=== PATIENT | female | born 1965 | race Caucasian/White ===

== ENCOUNTER 2016-12-24 16:07 | Inpatient (IN) | payer BC ==
[~2016-12-24] VITALS: Ht 165.1 cm; Wt 79.0 kg
[~2016-12-24 16:07] MED LIST: HYDR-2762 PO; MULT-208 PO; PREG300C PO; tylenol pm
[2016-12-24] MEDS ORDERED: IOHEXOL 350 MG/ML 100 ML VIAL. IV ONE (16:45)
[2016-12-24 16:54] LABS: BASO # 0.1 x10^3/uL (0.0-0.2); BASO % 1 % (0-3); EOS % 1 % (0-3); HEMATOCRIT 41.1 % (36.0-47.0); HEMOGLOBIN 14.2 g/dL (12.0-15.5); LYMPH # 1.7 x10^3/uL (1.0-4.8); LYMPH % 12 % (24-48); MEAN CORPUSCULAR HEMOGLOBIN 32 pg (25-35); MEAN CORPUSCULAR HGB CONC 35 g/dL (31-37); MEAN CORPUSCULAR VOLUME 92 fL (79-100); MONO % 7 % (0-9); NEUT % 80 % (31-73); PLATELET COUNT 223 x10^3/uL (140-400); RED BLOOD COUNT 4.45 x10^6/uL (3.50-5.40); RED CELL DISTRIBUTION WIDTH 13.2 % (11.5-14.5); WHITE BLOOD COUNT 13.9 x10^3/uL (4.0-11.0)
[2016-12-24] MEDS ORDERED: MORPHINE SULFATE 4 MG/ML DISP.SYRIN. IV ONE (17:00)
[2016-12-24] MEDS ORDERED: CONTRAST GIVEN MC PRN (17:00)
--- NOTE | 2016-12-24 17:29 | EKG ---
[facility] [address] [place] [address] Test Date: 2016-12-24 Test Time: 16:37:25 Pat Name: BART GAUTHIER Department: Room: Gender: Female Pear Picker: : [id number] Requested By: DOC NORRIS Order Number: [id number] Reading MD: Austin Sawyer Measurements Intervals [place] Rate: 82 P: 0 [place]: 146 QRS: 48 QRSD: 92 T: 52 QT: 368 QTc: 433 Interpretive Statements SINUS RHYTHM Electronically Signed On 12-31-2016 8:59:07 CDT by Austin Sawyer
[2016-12-24 17:32] LABS: CALCIUM 9.2 mg/dL (8.5-10.1); CREATININE 0.6 mg/dL (0.6-1.0); POTASSIUM 4.1 mmol/L (3.5-5.1)
[2016-12-24 17:37] LABS: ALBUMIN 3.6 g/dL (3.4-5.0); ALBUMIN/GLOBULIN RATIO 0.9 (1.0-1.7); TOTAL BILIRUBIN 0.4 mg/dL (0.2-1.0); TOTAL PROTEIN 7.7 g/dL (6.4-8.2)
[2016-12-24] MEDS ORDERED: IOHEXOL 300 MG/ML 75 ML VIAL IV ONE (17:45)
--- NOTE | 2016-12-24 18:29 | RAD ---
PROCEDURE CT abdomen and pelvis with contrast HISTORY Abdominal pain, nausea and diarrhea TECHNIQUE Exposure: One or more of the following individualized dose reduction techniques were utilized for this exam: 1. Automated exposure control. 2. Adjustment of the mA and/or kV according to patient size. 3. Use of iterative reconstruction technique. Helical CT imaging abdomen and pelvis with 75 milliliters Omnipaque 300 intravenous contrast COMPARISON No prior FINDINGS Abdomen: Nodules at the right middle and bilateral lower lobes largest at the right lower lobe measuring 4 millimeters. Disc height loss and disc bulges with osteophytes with spinal canal and neural foraminal stenoses at L3-L4, L4-5 and L5-S1. 3 millimeter right renal calculus at the midpole. 1.5 centimeter nonspecific right adrenal nodule. Pancreatic duct approximate diameter 3 millimeters upper limits of normal. No biliary ductal dilation evident. There may be bilateral renal peripelvic cysts at the upper poles. Left adrenal, gallbladder, liver and spleen are unremarkable. Sigmoid colon diverticulitis with wall thickening and inflammation surrounding a diverticulum no abscess or pneumoperitoneum evident. No bowel obstruction. Appendix is negative. No abdominal fluid or adenopathy. Pelvis: Minimal pelvic fluid and fat stranding from diverticulitis of the sigmoid colon. Globular uterus likely due to fibroids largest at the left lower uterine segment measuring approximately 4 centimeters. Ovaries atrophic or hidden by surrounding bowel loops. Bladder, rectum and bones are unremarkable. IMPRESSION 1. Sigmoid colon diverticulitis. No abscess. 2. The appendix is negative. 3. 3 millimeter right renal midpole nonobstructing calculus. 4. Small pulmonary nodules at the lung bases largest measuring 4 millimeters. In a low risk patient no further follow-up is needed. In a high risk patient follow-up CT imaging in 12 months would be advised per Fleischner Society 2017 guidelines. 5. Fibroid uterus. 6. 1.5 centimeter nonspecific right adrenal nodule. Electronically signed by: Jack Gan MD (December 24, 2016 18:28:08)
[2016-12-24 18:42] LABS: BILIRUBIN,URINE NEGATIVE (NEG); GLUCOSE,URINE NEGATIVE (NEG); NITRITE,URINE NEGATIVE (NEG); PROTEIN,URINE NEGATIVE (NEG-TRACE); UROBILINOGEN,URINE 0.2 mg/dL (0.2 mg/dL)
[2016-12-24 18:49] LABS: BACTERIA,URINE 0 /HPF (0-FEW); RBC,URINE 0 /HPF (0-2); SQUAMOUS EPITHELIAL CELL,UR FEW /LPF; WBC,URINE 0 /HPF (0-4)
[2016-12-24] MEDS ORDERED: ONDANSETRON PF 4 MG/2 ML VIAL. IV PRN (19:00)
[2016-12-24] MEDS: CIPROFLOXACIN 400MG PREMIX 200 ML IV SCH (19:13)
[2016-12-24] MEDS: IV NORMAL SALINE 1000ML BAG 1,000 ML IV SCH ×2 (19:14→23:13)
[2016-12-24] MEDS: MORPHINE SULFATE 4 MG/ML DISP.SYRIN. IV PRN ×3 (19:14→23:09)
--- NOTE | 2016-12-24 19:41 | PHYS DOC ---
Past Medical History Past Medical History: Fibromyalgia, Other Additional Past Medical Histor: spinal stenosis; occular hyst Past Surgical History: Other Additional Past Surgical Histo: eye surgery Alcohol Use: Occasionally Drug Use: Opiates Social History Narrative: USES [facility] Adult General Chief Complaint Chief Complaint: ABDOMINAL PAIN HPI HPI 51-year-old female is having significant lower abdominal pain that has radiated now up into her epigastrium area. She states the pain started approximately 3-4 days ago in her lower abdomen and pelvic region and has significantly worsened. She denies any nausea or vomiting or fever. She states she's never had pain quite like this before. She's never had any abdominal surgery. She's had no history of prior colonoscopy. Upon my initial assessment, the patient is in moderate distress complaining of significant pain in her lower abdominal region. She denies any dysuria or hematuria. She denies any vaginal bleeding. She states she's had both of her Fallopian tubes tied. She states she has tried taking Ranger at home without relief. Review of Systems Review of Systems Constitutional: Denies fever or chills [] Eyes: Denies change in visual acuity, redness, or eye pain [] HENT: Denies nasal congestion or sore throat [] Respiratory: Denies cough or shortness of breath [] Cardiovascular: No additional information not addressed in HPI [] GI: Has abdominal pain, denies nausea, vomiting, denies bloody stools or diarrhea [] : Denies dysuria or hematuria [] Musculoskeletal: Denies back pain or joint pain [] Integument: Denies rash or skin lesions [] Neurologic: Denies headache, focal weakness or sensory changes [] Endocrine: Denies polyuria or polydipsia [] Current Medications Current Medications Current Medications Medications (Trade) Dose Ordered Sig/Maryellen Start Time Stop Time Status Last Admin Dose Admin Info (Do NOT chart on this entry -- for MONITORING) 1 each PRN DAILY PRN 12/24/16 17:00 12/26/16 16:59 Iohexol (Omnipaque 300 Mg/ml) 75 ml 1X ONCE 12/24/16 17:45 12/24/16 17:49 DC 12/24/16 17:49 75 ML Iohexol (Omnipaque 350 Mg/ml) 100 ml 1X ONCE 12/24/16 16:45 12/24/16 16:46 DC Morphine Sulfate 4 mg 1X ONCE 12/24/16 17:00 12/24/16 17:01 DC 12/24/16 17:01 4 MG Sodium Chloride 1,000 ml @ 100 mls/hr Q10H 12/24/16 18:55 12/25/16 18:54 12/24/16 23:13 100 MLS/HR Allergies Allergies Allergies Coded Allergies Type Severity Reaction Last Updated Verified No Known Drug Allergies 06/19/16 No Physical Exam Physical Exam Constitutional: Well developed, well nourished, no acute distress, non-toxic appearance. [] HENT: Normocephalic, atraumatic, bilateral external ears normal, oropharynx moist, no oral exudates, nose normal. [] Eyes: PERRLA, EOMI, conjunctiva normal, no discharge. [] Neck: Normal range of motion, no tenderness, supple, no stridor. [] Cardiovascular:Heart rate regular rhythm, no murmur [] Lungs & Thorax: Bilateral breath sounds clear to auscultation [] Abdomen: Bowel sounds normal, soft, moderate lower abdominal tenderness but no noted generalized tenderness throughout, no masses, no pulsatile masses. [] Skin: Warm, dry, no erythema, no rash. [] Back: No tenderness, no CVA tenderness. [] Extremities: No tenderness, no cyanosis, no clubbing, ROM intact, no edema. [] Neurologic: Alert and oriented X 3, normal motor function, normal sensory function, no focal deficits noted. [] Psychologic: Affect normal, judgement normal, mood normal. [] Current Patient Data Vital Signs Vital Signs Date Time Temp Pulse Resp B/P (MAP) Pulse Ox O2 Delivery O2 Flow Rate FiO2 12/24/16 17:57 77 22 138/77 (97) 97 Room Air 12/24/16 16: 98.8 98.8 Lab Values Laboratory Tests Test 12/24/16 16:45 12/24/16 18:30 White Blood Count 13.9 x10^3/uL (4.0-11.0) H Red Blood Count 4.45 x10^6/uL (3.50-5.40) Hemoglobin 14.2 g/dL (12.0-15.5) Hematocrit 41.1 % (36.0-47.0) Mean Corpuscular Volume 92 fL (79-100) Mean Corpuscular Hemoglobin 32 pg (25-35) Mean Corpuscular Hemoglobin Concent 35 g/dL (31-37) Red Cell Distribution Width 13.2 % (11.5-14.5) Platelet Count 223 x10^3/uL (140-400) Neutrophils (%) (Auto) 80 % (31-73) H Lymphocytes (%) (Auto) 12 % (24-48) L Monocytes (%) (Auto) 7 % (0-9) Eosinophils (%) (Auto) 1 % (0-3) Basophils (%) (Auto) 1 % (0-3) Neutrophils # (Auto) 11.0 x10^3uL (1.8-7.7) H Lymphocytes # (Auto) 1.7 x10^3/uL (1.0-4.8) Monocytes # (Auto) 0.9 x10^3/uL (0.0-1.1) Eosinophils # (Auto) 0.2 x10^3/uL (0.0-0.7) Basophils # (Auto) 0.1 x10^3/uL (0.0-0.2) Sodium Level 139 mmol/L (136-145) Potassium Level 4.1 mmol/L (3.5-5.1) Chloride Level 102 mmol/L (98-107) Carbon Dioxide Level 25 mmol/L (21-32) Anion Gap 12 (6-14) Blood Urea Nitrogen 8 mg/dL (7-20) Creatinine 0.6 mg/dL (0.6-1.0) Estimated GFR (Cockcroft-Gault) 105.0 BUN/Creatinine Ratio 13 (6-20) Glucose Level 97 mg/dL (70-99) Calcium Level 9.2 mg/dL (8.5-10.1) Total Bilirubin 0.4 mg/dL (0.2-1.0) Aspartate Amino Transferase (AST) 37 U/L (15-37) Alanine Aminotransferase (ALT) 33 U/L (14-59) Alkaline Phosphatase 71 U/L (46-116) Troponin I Quantitative < 0.017 ng/mL (0.000-0.055) Total Protein 7.7 g/dL (6.4-8.2) Albumin 3.6 g/dL (3.4-5.0) Albumin/Globulin Ratio 0.9 (1.0-1.7) L Lipase 101 U/L (73-393) Urine Collection Type Unknown Urine Color Yellow Urine Clarity Clear Urine pH 7.0 Urine Specific [place] 1.025 Urine Protein Negative mg/dL (NEG-TRACE) Urine Glucose (UA) Negative mg/dL (NEG) Urine Ketones (Stick) Negative mg/dL (NEG) Urine Blood Negative (NEG) Urine Nitrite Negative (NEG) Urine Bilirubin Negative (NEG) Urine Urobilinogen Dipstick 0.2 mg/dL (0.2 mg/dL) Urine Leukocyte Esterase Negative (NEG) Urine RBC 0 /HPF (0-2) Urine WBC 0 /HPF (0-4) Urine Squamous Epithelial Cells Few /LPF Urine Bacteria 0 /HPF (0-FEW) Laboratory Tests 12/24/16 16:45 Laboratory Tests 12/24/16 16:45 EKG EKG EKG as interpreted by me shows a sinus rhythm with a rate of 82 bpm. There is no acute injury pattern. There is a T-wave inversion noted to lead V2. There are no other acute abnormalities seen. Intervals are normal. Radiology/Procedures Radiology/Procedures PROCEDURE CT abdomen and pelvis with contrast HISTORY Abdominal pain, nausea and diarrhea TECHNIQUE Exposure: One or more of the following individualized dose reduction techniques were utilized for this exam: 1. Automated exposure control. 2. Adjustment of the mA and/or kV according to patient size. 3. Use of iterative reconstruction technique. Helical CT imaging abdomen and pelvis with 75 milliliters Omnipaque 300 intravenous contrast COMPARISON No prior FINDINGS Abdomen: Nodules at the right middle and bilateral lower lobes largest at the right lower lobe measuring 4 millimeters. Disc height loss and disc bulges with osteophytes with spinal canal and neural foraminal stenoses at L3-L4, L4-5 and L5-S1. 3 millimeter right renal calculus at the midpole. 1.5 centimeter nonspecific right adrenal nodule. Pancreatic duct approximate diameter 3 millimeters upper limits of normal. No biliary ductal dilation evident. There may be bilateral renal peripelvic cysts at the upper poles. Left adrenal, gallbladder, liver and spleen are unremarkable. Sigmoid colon diverticulitis with wall thickening and inflammation surrounding a diverticulum no abscess or pneumoperitoneum evident. No bowel obstruction. Appendix is negative. No abdominal fluid or adenopathy. Pelvis: Minimal pelvic fluid and fat stranding from diverticulitis of the sigmoid colon. Globular uterus likely due to fibroids largest at the left lower uterine segment measuring approximately 4 centimeters. Ovaries atrophic or hidden by surrounding bowel loops. Bladder, rectum and bones are unremarkable. IMPRESSION 1. Sigmoid colon diverticulitis. No abscess. 2. The appendix is negative. 3. 3 millimeter right renal midpole nonobstructing calculus. 4. Small pulmonary nodules at the lung bases largest measuring 4 millimeters. In a low risk patient no further follow-up is needed. In a high risk patient follow-up CT imaging in 12 months would be advised per Fleischner Society 2017 guidelines. 5. Fibroid uterus. 6. 1.5 centimeter nonspecific right adrenal nodule. Course & Med Decision Making Course & Med Decision Making Pertinent Labs and Imaging studies reviewed. (See chart for details) This 61-year-old female with significant lower abdominal pain as a CT scan that shows evidence of acute diverticulitis with no apparent abscess or any other complicated component. IV antibiotics and pain meds were administered with a fluid bolus. Her lung nodule findings were also communicated to her. Patient has required multiple doses of pain control and will be admitted to the hospital for her diverticulitis. I discussed the need to admit the patient with the hospitalist, Dr. Badillo, who agreed to accept for further evaluation and treatment. Dragon Disclaimer Dragon Disclaimer This electronic medical record was generated, in whole or in part, using a voice recognition dictation system. Departure Departure Impression: Primary Impression: Acute diverticulitis Additional Impression: Abdominal pain Disposition: ADMITTED INPATIENT Admitting Physician: Chela Badillo Condition: STABLE Referrals: LONG WHITLEY (PCP) Problem Qualifiers DOC NORRIS DO December 24, 2016 19:41
--- NOTE | 2016-12-24 22:14 | ACF ---
Admission Forms Criteria DIVERTICULITIS, ACUTE Clinical Indications for Admission to Inpatient Care (Place 'X' for any and all applicable criteria): Admission is indicated for ANY ONE of the following (1)(2)(3)(4): [ ]I. Peritoneal signs on physical examination (eg, acute abdominal pain, abdominal tenderness and guarding) [ ]II. Hemodynamic instability [ ]III. Persistent gross bleeding per rectum [ ]IV. Need for inpatient surgical intervention [ ]V. Significant abnormality on imaging study including ANY ONE of the following: [ ]a) Abscess [ ]b) Obstruction [ ]c) Fistula [ ]d) Ileus [ ]e) Free perforation [ ]. Immunocompromised patient (steroid use, chemotherapy, uremia, AIDS , transplant patient ) with acute symptoms [X]VII Inpatient admission required rather than observation care (also use Diverticulitis, Acute: Observation Care as appropriate) because of ANY ONE of the following: [ ]a) High fever or infection. requiring inpatient admission as indicated by ANY ONE of the following(5): [ ]1) Appropriate outpatient or observation care antimicrobial treatment unavailable, not effective, not feasible [ ]2) Temperature > 103.1 degrees F (39.5 degrees C) (oral) or < 96.8 degrees F (36 degrees C)(rectal) that does not respond to all emergency treatment measures [ ]3) Temperature> 104.9 degrees F (40.5 degrees C)( oral) [ ]4) Documented bacteremia [X]b) Severe pain requiring acute inpatient management [ ]c) Severe electrolyte abnormalities requiring inpatient care [ ]d) Ongoing transfusion for blood loss (> 2 units) [ ]e) IV fluid to replace significant ongoing losses (> 3 L/m2 per day) [ ]f) Parenteral nutrition regimen that must be implemented on inpatient basis [ ]g) Other condition, treatment or monitoring requiring inpatient admission Extended stay beyond goal length of stay may be needed for (2) (15) : [ ]a) Unresolved symptoms (19) [ ]b) Complications [ ]c) Diverticular hemorrhage(2) The original [facility] [employer] content created by [facility] [employer] has been revised. The portions of the content which have been revised are identified through the use of italic text or in bold, and [facility] [employer] has neither reviewed nor approved the modified material. All other unmodified content is copyright [facility]. Please see references footnoted in the original [facility] edition 2016 Admission Criteria Met?: Yes LAKESHIA HENLEY December 24, 2016 22:14
[2016-12-24] MEDS ORDERED: ACET325T9 PO (22:32)
[2016-12-24] MEDS ORDERED: GABA-586 PO (22:32)
[2016-12-24] MEDS ORDERED: MELO-150 PO (22:32)
[2016-12-24] MEDS ORDERED: DIPH25CA58 PO (22:32)
[2016-12-24] MEDS ORDERED: POLYVINYL ALCOHOL 1.4% OPHTH SOLUTION 15ML BOTTLE. OU PRN (23:00)
[2016-12-24] MEDS: diphenhydrAMINE 50 MG/ML VIAL IVP PRN (23:13)
[2016-12-25] VITALS (7 sets, daily range): BP systolic 113–142; BP diastolic 62–86
--- NOTE | 2016-12-25 00:06 | HP ---
ADMIT DATE: 12/24/2016 CHIEF COMPLAINT: Abdominal pain. HISTORY OF PRESENT ILLNESS: The patient is a pleasant 51-year-old female who presents with abdominal pain. Imaging studies in the ER is showing diverticulitis. She is going to be admitted for IV antibiotics and consultations GI. PAST MEDICAL HISTORY: Stroke, arthritis, and cervical spine stenosis. She has a histoplasmosis of the eyes. ALLERGIES: None. FAMILY HISTORY: Diabetes. SOCIAL HISTORY: She does not drink, smoke or take drugs. MEDICATIONS: Reviewed. She is on gabapentin, meloxicam, and [place] among others. REVIEW OF SYSTEMS: GENERAL: No history of weight change, weakness or fevers. SKIN: No bruising, hair changes or rashes. EYES: No blurred, double or loss of vision. NOSE AND THROAT: No history of nosebleeds, hoarseness or sore throat. HEART: No history of palpitations, chest pain or shortness of breath on exertion. LUNGS: Denies cough, hemoptysis, wheezing or shortness of breath. GASTROINTESTINAL: Denies changes in appetite, nausea, vomiting, diarrhea or constipation. She complains of abdominal pain. GENITOURINARY: No history of frequency, urgency, hesitancy or nocturia. NEUROLOGIC: Denies history of numbness, tingling, tremor or weakness. PSYCHIATRIC: No history of panic, anxiety or depression. ENDOCRINE: No history of heat or cold intolerance, polyuria or polydipsia. EXTREMITIES: Denies muscle weakness, joint pain, pain on walking or stiffness. PHYSICAL EXAMINATION: VITAL SIGNS: Temperature afebrile, pulse 69, respirations 22, and blood pressure 116/75. GENERAL: She is alert, cooperative. HEART: Normal S1, S2. LUNGS: Clear. ABDOMEN: Soft and tender. EXTREMITIES: No edema. SKIN: No rashes. PSYCHIATRIC: She is anxious. VASCULAR: Good capillary refill. ENDOCRINE: No thyromegaly. LYMPHATICS: No cervical nodes. ASSESSMENT AND PLAN: Diverticulitis. The patient has been admitted. We will start IV antibiotics. Consult GI. IV fluids, p.r.n. antiemetics, continue home medicines. TRISH NEWTON DO DR: DEXTER/stella JOB#: [id number] / [id number]
[2016-12-25] MEDS: MORPHINE SULFATE 4 MG/ML DISP.SYRIN. IV PRN ×3 (03:06→09:55)
[2016-12-25 07:50] LABS: BASO # 0.1 x10^3/uL (0.0-0.2); BASO % 1 % (0-3); EOS % 2 % (0-3); HEMATOCRIT 38.2 % (36.0-47.0); HEMOGLOBIN 12.8 g/dL (12.0-15.5); LYMPH # 2.1 x10^3/uL (1.0-4.8); LYMPH % 23 % (24-48); MEAN CORPUSCULAR HEMOGLOBIN 32 pg (25-35); MEAN CORPUSCULAR HGB CONC 34 g/dL (31-37); MEAN CORPUSCULAR VOLUME 95 fL (79-100); MONO % 8 % (0-9); NEUT % 67 % (31-73); PLATELET COUNT 206 x10^3/uL (140-400); RED BLOOD COUNT 4.02 x10^6/uL (3.50-5.40); RED CELL DISTRIBUTION WIDTH 13.5 % (11.5-14.5); WHITE BLOOD COUNT 9.2 x10^3/uL (4.0-11.0)
[2016-12-25] MEDS: CIPROFLOXACIN 400MG PREMIX 200 ML IV SCH ×2 (07:50→19:49)
[2016-12-25 08:13] LABS: CALCIUM 8.3 mg/dL (8.5-10.1); CREATININE 0.6 mg/dL (0.6-1.0); POTASSIUM 4.2 mmol/L (3.5-5.1)
[2016-12-25] MEDS: IV NORMAL SALINE 1000ML BAG 1,000 ML IV SCH (09:55)
[2016-12-25] MEDS: HYDROmorphone 2 MG/ML VIAL IV PRN ×7 (11:04→23:48)
--- NOTE | 2016-12-25 11:58 | PDOC ---
PROGRESS NOTES Chief Complaint Chief Complaint cc: abdominal pain A/P Acute diverticulitis Hives Plan iv Cipro and iv Flagyl Pain control with IV Dilaudid labs reviewed hydrocortisone topica NPO IV hydration Vitals Vitals Vital Signs Date Time Temp Pulse Resp B/P (MAP) Pulse Ox O2 Delivery O2 Flow Rate FiO2 12/25/16 11:04 Room Air 12/25/16 10:30 97.7 64 18 129/65 (86) 100 97.7 Physical Exam General: Alert, Oriented X3 Heart: Normal S1, Normal S2 Lungs: Clear Abdomen: Normal bowel sounds, Soft Extremities: No cyanosis Skin: Other (hive sacral region ) Labs LABS Laboratory Tests Test 12/24/16 16:45 12/24/16 18:30 12/25/16 07:05 White Blood Count 13.9 x10^3/uL (4.0-11.0) 9.2 x10^3/uL (4.0-11.0) Red Blood Count 4.45 x10^6/uL (3.50-5.40) 4.02 x10^6/uL (3.50-5.40) Hemoglobin 14.2 g/dL (12.0-15.5) 12.8 g/dL (12.0-15.5) Hematocrit 41.1 % (36.0-47.0) 38.2 % (36.0-47.0) Mean Corpuscular Volume 92 fL (79-100) 95 fL (79-100) Mean Corpuscular Hemoglobin 32 pg (25-35) 32 pg (25-35) Mean Corpuscular Hemoglobin Concent 35 g/dL (31-37) 34 g/dL (31-37) Red Cell Distribution Width 13.2 % (11.5-14.5) 13.5 % (11.5-14.5) Platelet Count 223 x10^3/uL (140-400) 206 x10^3/uL (140-400) Neutrophils (%) (Auto) 80 % (31-73) 67 % (31-73) Lymphocytes (%) (Auto) 12 % (24-48) 23 % (24-48) Monocytes (%) (Auto) 7 % (0-9) 8 % (0-9) Eosinophils (%) (Auto) 1 % (0-3) 2 % (0-3) Basophils (%) (Auto) 1 % (0-3) 1 % (0-3) Neutrophils # (Auto) 11.0 x10^3uL (1.8-7.7) 6.2 x10^3uL (1.8-7.7) Lymphocytes # (Auto) 1.7 x10^3/uL (1.0-4.8) 2.1 x10^3/uL (1.0-4.8) Monocytes # (Auto) 0.9 x10^3/uL (0.0-1.1) 0.7 x10^3/uL (0.0-1.1) Eosinophils # (Auto) 0.2 x10^3/uL (0.0-0.7) 0.2 x10^3/uL (0.0-0.7) Basophils # (Auto) 0.1 x10^3/uL (0.0-0.2) 0.1 x10^3/uL (0.0-0.2) Sodium Level 139 mmol/L (136-145) 144 mmol/L (136-145) Potassium Level 4.1 mmol/L (3.5-5.1) 4.2 mmol/L (3.5-5.1) Chloride Level 102 mmol/L (98-107) 108 mmol/L (98-107) Carbon Dioxide Level 25 mmol/L (21-32) 26 mmol/L (21-32) Anion Gap 12 (6-14) 10 (6-14) Blood Urea Nitrogen 8 mg/dL (7-20) 8 mg/dL (7-20) Creatinine 0.6 mg/dL (0.6-1.0) 0.6 mg/dL (0.6-1.0) Estimated GFR (Cockcroft-Gault) 105.0 105.0 BUN/Creatinine Ratio 13 (6-20) Glucose Level 97 mg/dL (70-99) 81 mg/dL (70-99) Calcium Level 9.2 mg/dL (8.5-10.1) 8.3 mg/dL (8.5-10.1) Total Bilirubin 0.4 mg/dL (0.2-1.0) Aspartate Amino Transf (AST/SGOT) 37 U/L (15-37) Alanine Aminotransferase (ALT/SGPT) 33 U/L (14-59) Alkaline Phosphatase 71 U/L (46-116) Troponin I Quantitative < 0.017 ng/mL (0.000-0.055) Total Protein 7.7 g/dL (6.4-8.2) Albumin 3.6 g/dL (3.4-5.0) Albumin/Globulin Ratio 0.9 (1.0-1.7) Lipase 101 U/L (73-393) Urine Collection Type Unknown Urine Color Yellow Urine Clarity Clear Urine pH 7.0 Urine Specific [place] 1.025 Urine Protein Negative mg/dL (NEG-TRACE) Urine Glucose (UA) Negative mg/dL (NEG) Urine Ketones (Stick) Negative mg/dL (NEG) Urine Blood Negative (NEG) Urine Nitrite Negative (NEG) Urine Bilirubin Negative (NEG) Urine Urobilinogen Dipstick 0.2 mg/dL (0.2 mg/dL) Urine Leukocyte Esterase Negative (NEG) Urine RBC 0 /HPF (0-2) Urine WBC 0 /HPF (0-4) Urine Squamous Epithelial Cells Few /LPF Urine Bacteria 0 /HPF (0-FEW) Assessment and Plan Assessmemt and Plan Problems Medical Problems: (1) Abdominal pain Status: Acute (2) Acute diverticulitis Status: Acute Problems: Comment Review of Relevant I have reviewed the following items elvis (where applicable) has been applied. Labs Laboratory Tests Test 12/24/16 16:45 12/24/16 18:30 12/25/16 07:05 White Blood Count 13.9 x10^3/uL (4.0-11.0) 9.2 x10^3/uL (4.0-11.0) Red Blood Count 4.45 x10^6/uL (3.50-5.40) 4.02 x10^6/uL (3.50-5.40) Hemoglobin 14.2 g/dL (12.0-15.5) 12.8 g/dL (12.0-15.5) Hematocrit 41.1 % (36.0-47.0) 38.2 % (36.0-47.0) Mean Corpuscular Volume 92 fL (79-100) 95 fL (79-100) Mean Corpuscular Hemoglobin 32 pg (25-35) 32 pg (25-35) Mean Corpuscular Hemoglobin Concent 35 g/dL (31-37) 34 g/dL (31-37) Red Cell Distribution Width 13.2 % (11.5-14.5) 13.5 % (11.5-14.5) Platelet Count 223 x10^3/uL (140-400) 206 x10^3/uL (140-400) Neutrophils (%) (Auto) 80 % (31-73) 67 % (31-73) Lymphocytes (%) (Auto) 12 % (24-48) 23 % (24-48) Monocytes (%) (Auto) 7 % (0-9) 8 % (0-9) Eosinophils (%) (Auto) 1 % (0-3) 2 % (0-3) Basophils (%) (Auto) 1 % (0-3) 1 % (0-3) Neutrophils # (Auto) 11.0 x10^3uL (1.8-7.7) 6.2 x10^3uL (1.8-7.7) Lymphocytes # (Auto) 1.7 x10^3/uL (1.0-4.8) 2.1 x10^3/uL (1.0-4.8) Monocytes # (Auto) 0.9 x10^3/uL (0.0-1.1) 0.7 x10^3/uL (0.0-1.1) Eosinophils # (Auto) 0.2 x10^3/uL (0.0-0.7) 0.2 x10^3/uL (0.0-0.7) Basophils # (Auto) 0.1 x10^3/uL (0.0-0.2) 0.1 x10^3/uL (0.0-0.2) Sodium Level 139 mmol/L (136-145) 144 mmol/L (136-145) Potassium Level 4.1 mmol/L (3.5-5.1) 4.2 mmol/L (3.5-5.1) Chloride Level 102 mmol/L (98-107) 108 mmol/L (98-107) Carbon Dioxide Level 25 mmol/L (21-32) 26 mmol/L (21-32) Anion Gap 12 (6-14) 10 (6-14) Blood Urea Nitrogen 8 mg/dL (7-20) 8 mg/dL (7-20) Creatinine 0.6 mg/dL (0.6-1.0) 0.6 mg/dL (0.6-1.0) Estimated GFR (Cockcroft-Gault) 105.0 105.0 BUN/Creatinine Ratio 13 (6-20) Glucose Level 97 mg/dL (70-99) 81 mg/dL (70-99) Calcium Level 9.2 mg/dL (8.5-10.1) 8.3 mg/dL (8.5-10.1) Total Bilirubin 0.4 mg/dL (0.2-1.0) Aspartate Amino Transf (AST/SGOT) 37 U/L (15-37) Alanine Aminotransferase (ALT/SGPT) 33 U/L (14-59) Alkaline Phosphatase 71 U/L (46-116) Troponin I Quantitative < 0.017 ng/mL (0.000-0.055) Total Protein 7.7 g/dL (6.4-8.2) Albumin 3.6 g/dL (3.4-5.0) Albumin/Globulin Ratio 0.9 (1.0-1.7) Lipase 101 U/L (73-393) Urine Collection Type Unknown Urine Color Yellow Urine Clarity Clear Urine pH 7.0 Urine Specific [place] 1.025 Urine Protein Negative mg/dL (NEG-TRACE) Urine Glucose (UA) Negative mg/dL (NEG) Urine Ketones (Stick) Negative mg/dL (NEG) Urine Blood Negative (NEG) Urine Nitrite Negative (NEG) Urine Bilirubin Negative (NEG) Urine Urobilinogen Dipstick 0.2 mg/dL (0.2 mg/dL) Urine Leukocyte Esterase Negative (NEG) Urine RBC 0 /HPF (0-2) Urine WBC 0 /HPF (0-4) Urine Squamous Epithelial Cells Few /LPF Urine Bacteria 0 /HPF (0-FEW) Laboratory Tests Test 12/24/16 16:45 12/24/16 18:30 12/25/16 07:05 White Blood Count 13.9 x10^3/uL (4.0-11.0) 9.2 x10^3/uL (4.0-11.0) Red Blood Count 4.45 x10^6/uL (3.50-5.40) 4.02 x10^6/uL (3.50-5.40) Hemoglobin 14.2 g/dL (12.0-15.5) 12.8 g/dL (12.0-15.5) Hematocrit 41.1 % (36.0-47.0) 38.2 % (36.0-47.0) Mean Corpuscular Volume 92 fL (79-100) 95 fL (79-100) Mean Corpuscular Hemoglobin 32 pg (25-35) 32 pg (25-35) Mean Corpuscular Hemoglobin Concent 35 g/dL (31-37) 34 g/dL (31-37) Red Cell Distribution Width 13.2 % (11.5-14.5) 13.5 % (11.5-14.5) Platelet Count 223 x10^3/uL (140-400) 206 x10^3/uL (140-400) Neutrophils (%) (Auto) 80 % (31-73) 67 % (31-73) Lymphocytes (%) (Auto) 12 % (24-48) 23 % (24-48) Monocytes (%) (Auto) 7 % (0-9) 8 % (0-9) Eosinophils (%) (Auto) 1 % (0-3) 2 % (0-3) Basophils (%) (Auto) 1 % (0-3) 1 % (0-3) Neutrophils # (Auto) 11.0 x10^3uL (1.8-7.7) 6.2 x10^3uL (1.8-7.7) Lymphocytes # (Auto) 1.7 x10^3/uL (1.0-4.8) 2.1 x10^3/uL (1.0-4.8) Monocytes # (Auto) 0.9 x10^3/uL (0.0-1.1) 0.7 x10^3/uL (0.0-1.1) Eosinophils # (Auto) 0.2 x10^3/uL (0.0-0.7) 0.2 x10^3/uL (0.0-0.7) Basophils # (Auto) 0.1 x10^3/uL (0.0-0.2) 0.1 x10^3/uL (0.0-0.2) Sodium Level 139 mmol/L (136-145) 144 mmol/L (136-145) Potassium Level 4.1 mmol/L (3.5-5.1) 4.2 mmol/L (3.5-5.1) Chloride Level 102 mmol/L (98-107) 108 mmol/L (98-107) Carbon Dioxide Level 25 mmol/L (21-32) 26 mmol/L (21-32) Anion Gap 12 (6-14) 10 (6-14) Blood Urea Nitrogen 8 mg/dL (7-20) 8 mg/dL (7-20) Creatinine 0.6 mg/dL (0.6-1.0) 0.6 mg/dL (0.6-1.0) Estimated GFR (Cockcroft-Gault) 105.0 105.0 BUN/Creatinine Ratio 13 (6-20) Glucose Level 97 mg/dL (70-99) 81 mg/dL (70-99) Calcium Level 9.2 mg/dL (8.5-10.1) 8.3 mg/dL (8.5-10.1) Total Bilirubin 0.4 mg/dL (0.2-1.0) Aspartate Amino Transf (AST/SGOT) 37 U/L (15-37) Alanine Aminotransferase (ALT/SGPT) 33 U/L (14-59) Alkaline Phosphatase 71 U/L (46-116) Troponin I Quantitative < 0.017 ng/mL (0.000-0.055) Total Protein 7.7 g/dL (6.4-8.2) Albumin 3.6 g/dL (3.4-5.0) Albumin/Globulin Ratio 0.9 (1.0-1.7) Lipase 101 U/L (73-393) Urine Collection Type Unknown Urine Color Yellow Urine Clarity Clear Urine pH 7.0 Urine Specific [place] 1.025 Urine Protein Negative mg/dL (NEG-TRACE) Urine Glucose (UA) Negative mg/dL (NEG) Urine Ketones (Stick) Negative mg/dL (NEG) Urine Blood Negative (NEG) Urine Nitrite Negative (NEG) Urine Bilirubin Negative (NEG) Urine Urobilinogen Dipstick 0.2 mg/dL (0.2 mg/dL) Urine Leukocyte Esterase Negative (NEG) Urine RBC 0 /HPF (0-2) Urine WBC 0 /HPF (0-4) Urine Squamous Epithelial Cells Few /LPF Urine Bacteria 0 /HPF (0-FEW) Medications Current Medications Iohexol (Omnipaque 350 Mg/ml) 100 ml 1X ONCE IV ; Start 12/24/16 at 16:45; Stop 12/24/16 at 16:46; Status DC Info (Do NOT chart on this entry -- for MONITORING) 1 each PRN DAILY PRN MC SEE COMMENTS; Start 12/24/16 at 17:00; Stop 12/26/16 at 16:59 Morphine Sulfate 4 mg 1X ONCE IV Last administered on 12/24/16 17:01; Start at 17:00; Stop 12/25/16 at 10:17; Status DC Iohexol (Omnipaque 300 Mg/ml) 75 ml 1X ONCE IV Last administered on 12/24/16 17:49; Start 12/24/16 at 17:45; Stop 12/24/16 at 17:49; Status DC Ondansetron HCl (Zofran) 4 mg PRN Q8HRS PRN IV NAUSEA/VOMITING; Start 12/24/16 at 19:00; Stop 12/25/16 at 18:59 Morphine Sulfate 4 mg PRN Q2HR PRN IV PAIN Last administered on 12/25/16 09:55 ; Start 12/24/16 at 19:00; Stop 12/25/16 at 10:19; Status DC Sodium Chloride 1,000 ml @ 100 mls/hr Q10H IV Last administered on 12/25/16 09 :55; Start 12/24/16 at 18:55; Stop 12/25/16 at 18:54 Ciprofloxacin Lactate 200 ml @ 200 mls/hr Q12H IV Last administered on 07:50; Start 12/24/16 at 20:00 Metronidazole 100 ml @ 100 mls/hr 1X IV ; Start 12/24/16 at 21:00 Metronidazole 100 ml @ 100 mls/hr Q12HR IV Last administered on 12/24/16 21:29 ; Start 12/25/16 at 09:00 Diphenhydramine HCl (Benadryl) 25 mg PRN QHS PRN IVP INSOMNIA Last administered on 12/24/16 23:13; Start 12/24/16 at 23:00 Artificial Tears (Artificial Tears) 1 drop PRN Q15MIN PRN OU DRY EYE Last administered on 12/24/16 23:19; Start 12/24/16 at 23:00 Hydromorphone HCl (Dilaudid) 0.5 mg PRN Q2HR PRN IV PAIN Last administered on 11:04; Start 12/25/16 at 10:15 Active Scripts Active Reported Benadryl (Diphenhydramine Hcl) 25 Mg Capsule 1 Cap PO QHS Tylenol (Acetaminophen) 325 Mg Tablet 325 Mg PO PRN QHS PRN Gabapentin 300 Mg Capsule 300 Mg PO TID Meloxicam 15 Mg Tablet 1 Tab PO DAILY Multi-Day Vitamins (Multivitamin) 1 Each Tablet 1 Tab PO DAILY [tylenol pm] PRN Hydrocodone-Apap 7.5-325 (Hydrocodone Bit/Acetaminophen) 1 Each Tablet 1 Tab PO PRN Q6HRS PRN Vitals/I & O Vital Sign - Last 24 Hours 12/24/16 12/24/16 12/24/16 12/24/16 16:17 16:38 17:01 17:08 Temp 98.8 98.8 Pulse 92 87 81 Resp 28 26 26 24 B/P (MAP) 125/66 (85) 141/85 (103) 146/81 (102) Pulse Ox 96 97 97 O2 Delivery Room Air Room Air Room Air 12/24/16 12/24/16 12/24/16 12/24/16 17:38 17:57 18:57 19:14 Pulse 79 77 74 Resp 24 22 20 22 B/P (MAP) 125/69 (87) 138/77 (97) 130/75 (93) Pulse Ox 97 97 98 O2 Delivery Room Air Room Air Room Air 12/24/16 12/24/16 12/24/16 12/25/16 21:29 22:47 23:09 00:01 Temp 98.8 98.8 Pulse 74 Resp 18 20 B/P (MAP) 130/75 (93) Pulse Ox 98 O2 Delivery Room Air Room Air Room Air 12/25/16 12/25/16 12/25/16 12/25/16 03:06 03:30 07:50 07:55 Temp 97.9 99.0 97.9 99.0 Pulse 72 68 Resp 18 18 18 B/P (MAP) 118/62 (80) 117/70 (86) Pulse Ox 96 95 O2 Delivery Room Air Room Air Room Air Room Air 12/25/16 12/25/16 12/25/16 12/25/16 08:20 09:55 10:30 11:04 Temp 97.7 97.7 Pulse 64 Resp 18 B/P (MAP) 129/65 (86) Pulse Ox 100 O2 Delivery Room Air Room Air Room Air Room Air Intake and Output 12/24/16 12/24/16 12/25/16 15:00 23:00 07:00 Intake Total 200 ml Output Total 350 ml Balance 200 ml -350 ml EMILIANO KRISHNAMURTHY MD December 25, 2016 11:58
[2016-12-25] MEDS: HYDROCORTISONE 1% TOPICAL OINTMENT 30GM TUBE. TP PRN ×2 (14:57→19:48)
[2016-12-25] MEDS: diphenhydrAMINE 50 MG/ML VIAL IVP PRN (19:39)
[2016-12-26] MEDS: HYDROmorphone 2 MG/ML VIAL IV PRN ×10 (02:10→22:24)
[2016-12-26 07:00] VITALS: BP 138/69
[2016-12-26] MEDS: CIPROFLOXACIN 400MG PREMIX 200 ML IV SCH ×2 (07:49→20:11)
--- NOTE | 2016-12-26 09:59 | PDOC ---
SUBJECTIVE Subjective still in quite a lot of pain , today more RLQ area, no nausea or vomiting now OBJECTIVE Vital Signs Vital Signs Date Time Temp Pulse Resp B/P (MAP) Pulse Ox O2 Delivery O2 Flow Rate FiO2 12/26/16 08:55 Room Air 12/26/16 08:00 Room Air 12/26/16 07:00 98.1 74 20 138/69 (92) 97 98.1 12/26/16 06:52 18 96 Room Air 12/26/16 06:15 18 96 Room Air 12/26/16 04:12 18 96 Room Air 12/26/16 03:14 Room Air 12/26/16 02:10 18 Room Air 12/25/16 23:48 18 96 Room Air 12/25/16 23:15 98.5 61 18 126/70 (88) 96 Room Air 98.5 12/25/16 21:39 18 98 Room Air 12/25/16 20:00 Room Air 12/25/16 19:39 18 98 Room Air 12/25/16 19:00 98.3 63 18 142/86 (104) 98 Room Air 98.3 12/25/16 17:13 Room Air 12/25/16 14:57 Room Air 12/25/16 14:42 98.1 61 18 113/70 (84) 98 Room Air 98.1 12/25/16 13:11 Room Air 12/25/16 11:04 Room Air 12/25/16 10:30 97.7 64 18 129/65 (86) 100 Room Air 97.7 12/25/16 09:55 Room Air I & O Intake and Output 12/26/16 07:00 Intake Total 2390 ml Output Total 750 ml Balance 1640 ml Intake IV Total 200 ml Other 2190 ml Output Urine Total 750 ml # Voids 2 PHYSICAL EXAM Physical Exam lungs clear heart RRR abd soft tender RLQ area + guarding , + BS ext no edema ASSESSMENT/PLAN Assessment/Plan 1. acute Sigmoid colon diverticulitis. 2. Today pain more in RLQ concerned about appendix even though CT negative will ask surgery to see 3. 3 millimeter right renal midpole nonobstructing calculus. 4. Small pulmonary nodules at the lung bases will monitor repeat CT 1 year 5. Fibroid uterus. 6. 1.5 centimeter nonspecific right adrenal nodule. 7. hx spinal stenosis C spine no prior hx of back pain continue ABx and pain control , consult surgery and GI, she is NPO for now Problems: AUREA NELSON MD December 26, 2016 09:59
--- NOTE | 2016-12-26 10:50 | PDOC2 ---
GI CONSULT Reason For Consult: Abd pain HPI: HPI: 51 y/o female evaluated in ER on 12/24 and admitted. Tells me not feeling well for 1 month w/ fatigue, insomnia related to hot flashes, decreased appetite, change in bowel habits, and worsening abdominal pain. Pain describes as beginning almost vaginally ("pressure") and radiating toward periumbilical area , currently BLQ. Stools vary from liquid to formed, sometimes even feels constipated. Denies n/v, reflux/heartburn, dysphagia, weight loss, hematochezia , melena. CT w/ sigmoid diverticulitis and normal appendix. Has been NPO on IV metronidazole and Cipro. Tearful this morning, saying she's hungry, asking how long she will feel this way. PMH: PMH: diverticulitis, OA (on hydrocodone BID + Meloxicam QD), CTS, cervical spine stenosis (has been advised to have MRI and EMG), ocular histoplasmosis, fibromyalgia, depression, unilateral salpingo-oophorectomy FH: Family History: No pertinent hx Social History: Smoke: <1 pack per day ALCOHOL: other (drinks beer twice weekly while gardening) Drugs: Cocaine (in the past) ROS: GEN: +hot flashes HEENT: Denies sore throat CV: Denies chest pain RESP: Denies shortness of air, cough GI: Per HPI : Denies hematuria, dysuria ENDO: Denies weight changes NEURO: Denies confusion, dizziness MSK: +fatigue, +neck pain SKIN: Denies jaundice, pruritus Vitals: Vitals: Vital Signs Date Time Temp Pulse Resp B/P (MAP) Pulse Ox O2 Delivery O2 Flow Rate FiO2 12/26/16 08:55 Room Air 12/26/16 07:00 98.1 74 20 138/69 (92) 97 98.1 Labs: Labs: Please see EMR. Allergies: Coded Allergies: No Known Drug Allergies (Unverified , 06/19/16) Medications: Current Medications Medications (Trade) Dose Ordered Sig/Maryellen Route PRN Reason Start Time Stop Time Status Last Admin Dose Admin Hydrocortisone (Cortaid) 1 alecia TID PRN PRN TP Raised rash on buttocks/back 12/25/16 14:15 12/25/16 19:48 Imaging: Imaging: CT A/P IMPRESSION 1. Sigmoid colon diverticulitis. No abscess. 2. The appendix is negative. 3. 3 millimeter right renal midpole nonobstructing calculus. 4. Small pulmonary nodules at the lung bases largest measuring 4 millimeters. In a low risk patient no further follow-up is needed. In a high risk patient follow-up CT imaging in 12 months would be advised per Fleischner Society 2017 guidelines. 5. Fibroid uterus. 6. 1.5 centimeter nonspecific right adrenal nodule. PE: GEN: NAD HEENT: Atraumatic LUNGS: CTAB anteriorly HEART: RRR ABD: BLQ discomfort, soft, BS quiet EXTREMITY: No edema SKIN: No rashes, no jaundice NEURO/PSYCH: A & O 3, tearful A/P: A/P: BLQ pain, change in bowel habits, sigmoid diverticulitis -CT as above, NPO, on IV atbx ---> pain not improving -surg consult pending r/o appendicitis CRC screen -no previous colonoscopy -- Will review w/ Dr. Horne. Needs outpatient colonoscopy after acute issues resolved. FACUNDO SCHNEIDER December 26, 2016 10:50
[2016-12-26 11:00] VITALS: BP 137/66
[2016-12-26 15:00] VITALS: BP 127/66
--- NOTE | 2016-12-26 15:10 | PDOC ---
SURGICAL PROGRESS NOTE Subjective 51 yo F with diverticulitis c/o persistent abd pain abd soft, diffuse TTP I/R diverticulitis cont abx suspect pain secondary to diverticulitis, will recheck CT in AM suspect pain magnified by patient's previous narcotic exposure and chronic pain issues Thanks for consult! Vital Signs Vital Signs Date Time Temp Pulse Resp B/P (MAP) Pulse Ox O2 Delivery O2 Flow Rate FiO2 12/26/16 15:00 98.2 78 16 127/66 (86) 92 Room Air 98.2 I&O Intake and Output 12/26/16 07:00 Intake Total 2390 ml Output Total 750 ml Balance 1640 ml Intake IV Total 200 ml Other 2190 ml Output Urine Total 750 ml # Voids 2 Labs Laboratory Tests Test 12/24/16 16:45 12/24/16 18:30 12/25/16 07:05 White Blood Count 13.9 x10^3/uL (4.0-11.0) 9.2 x10^3/uL (4.0-11.0) Red Blood Count 4.45 x10^6/uL (3.50-5.40) 4.02 x10^6/uL (3.50-5.40) Hemoglobin 14.2 g/dL (12.0-15.5) 12.8 g/dL (12.0-15.5) Hematocrit 41.1 % (36.0-47.0) 38.2 % (36.0-47.0) Mean Corpuscular Volume 92 fL (79-100) 95 fL (79-100) Mean Corpuscular Hemoglobin 32 pg (25-35) 32 pg (25-35) Mean Corpuscular Hemoglobin Concent 35 g/dL (31-37) 34 g/dL (31-37) Red Cell Distribution Width 13.2 % (11.5-14.5) 13.5 % (11.5-14.5) Platelet Count 223 x10^3/uL (140-400) 206 x10^3/uL (140-400) Neutrophils (%) (Auto) 80 % (31-73) 67 % (31-73) Lymphocytes (%) (Auto) 12 % (24-48) 23 % (24-48) Monocytes (%) (Auto) 7 % (0-9) 8 % (0-9) Eosinophils (%) (Auto) 1 % (0-3) 2 % (0-3) Basophils (%) (Auto) 1 % (0-3) 1 % (0-3) Neutrophils # (Auto) 11.0 x10^3uL (1.8-7.7) 6.2 x10^3uL (1.8-7.7) Lymphocytes # (Auto) 1.7 x10^3/uL (1.0-4.8) 2.1 x10^3/uL (1.0-4.8) Monocytes # (Auto) 0.9 x10^3/uL (0.0-1.1) 0.7 x10^3/uL (0.0-1.1) Eosinophils # (Auto) 0.2 x10^3/uL (0.0-0.7) 0.2 x10^3/uL (0.0-0.7) Basophils # (Auto) 0.1 x10^3/uL (0.0-0.2) 0.1 x10^3/uL (0.0-0.2) Sodium Level 139 mmol/L (136-145) 144 mmol/L (136-145) Potassium Level 4.1 mmol/L (3.5-5.1) 4.2 mmol/L (3.5-5.1) Chloride Level 102 mmol/L (98-107) 108 mmol/L (98-107) Carbon Dioxide Level 25 mmol/L (21-32) 26 mmol/L (21-32) Anion Gap 12 (6-14) 10 (6-14) Blood Urea Nitrogen 8 mg/dL (7-20) 8 mg/dL (7-20) Creatinine 0.6 mg/dL (0.6-1.0) 0.6 mg/dL (0.6-1.0) Estimated GFR (Cockcroft-Gault) 105.0 105.0 BUN/Creatinine Ratio 13 (6-20) Glucose Level 97 mg/dL (70-99) 81 mg/dL (70-99) Calcium Level 9.2 mg/dL (8.5-10.1) 8.3 mg/dL (8.5-10.1) Total Bilirubin 0.4 mg/dL (0.2-1.0) Aspartate Amino Transf (AST/SGOT) 37 U/L (15-37) Alanine Aminotransferase (ALT/SGPT) 33 U/L (14-59) Alkaline Phosphatase 71 U/L (46-116) Troponin I Quantitative < 0.017 ng/mL (0.000-0.055) Total Protein 7.7 g/dL (6.4-8.2) Albumin 3.6 g/dL (3.4-5.0) Albumin/Globulin Ratio 0.9 (1.0-1.7) Lipase 101 U/L (73-393) Urine Collection Type Unknown Urine Color Yellow Urine Clarity Clear Urine pH 7.0 Urine Specific [place] 1.025 Urine Protein Negative mg/dL (NEG-TRACE) Urine Glucose (UA) Negative mg/dL (NEG) Urine Ketones (Stick) Negative mg/dL (NEG) Urine Blood Negative (NEG) Urine Nitrite Negative (NEG) Urine Bilirubin Negative (NEG) Urine Urobilinogen Dipstick 0.2 mg/dL (0.2 mg/dL) Urine Leukocyte Esterase Negative (NEG) Urine RBC 0 /HPF (0-2) Urine WBC 0 /HPF (0-4) Urine Squamous Epithelial Cells Few /LPF Urine Bacteria 0 /HPF (0-FEW) Problem List Problems Medical Problems: (1) Abdominal pain Status: Acute (2) Acute diverticulitis Status: Acute Problems: XAVI LARIOS MD December 26, 2016 15:10
[2016-12-26 19:00] VITALS: BP 135/74
[2016-12-26] MEDS ORDERED: diphenhydrAMINE 50 MG/ML VIAL IVP PRN (20:00)
[2016-12-26] MEDS: POTASSIUM CL 20MEQ D5-0.9%NACL 1,000 ML IV SCH (20:07)
[2016-12-26 23:03] VITALS: BP 121/63
[2016-12-27] VITALS (7 sets, daily range): BP systolic 107–142; BP diastolic 57–84
[2016-12-27] MEDS: HYDROmorphone 2 MG/ML VIAL IV PRN ×9 (01:16→23:40)
[2016-12-27] MEDS: POTASSIUM CL 20MEQ D5-0.9%NACL 1,000 ML IV SCH ×3 (05:18→20:14)
[2016-12-27 06:28] LABS: HEMATOCRIT 38.3 % (36.0-47.0); HEMOGLOBIN 13.2 g/dL (12.0-15.5); RED BLOOD COUNT 4.17 x10^6/uL (3.50-5.40); RED CELL DISTRIBUTION WIDTH 12.7 % (11.5-14.5); WHITE BLOOD COUNT 7.7 x10^3/uL (4.0-11.0)
[2016-12-27] MEDS ORDERED: CONTRAST GIVEN MC PRN (06:30)
[2016-12-27 06:41] LABS: ALBUMIN 3.2 g/dL (3.4-5.0); ALBUMIN/GLOBULIN RATIO 0.8 (1.0-1.7); CALCIUM 8.8 mg/dL (8.5-10.1); CREATININE 0.6 mg/dL (0.6-1.0); POTASSIUM 3.5 mmol/L (3.5-5.1); TOTAL BILIRUBIN 0.4 mg/dL (0.2-1.0); TOTAL PROTEIN 7.1 g/dL (6.4-8.2)
[2016-12-27] MEDS ORDERED: IOHEXOL 240 MG/ML 50ML VIAL. PO ONE (07:00)
[2016-12-27] MEDS ORDERED: IOHEXOL 300 MG/ML 75 ML VIAL IV ONE (07:00)
--- NOTE | 2016-12-27 09:27 | PDOC ---
SUBJECTIVE Subjective abd pain seems better today but still present, c/o neck pain and spasm OBJECTIVE Vital Signs Vital Signs Date Time Temp Pulse Resp B/P (MAP) Pulse Ox O2 Delivery O2 Flow Rate FiO2 12/27/16 08:10 20 92 Room Air 12/27/16 07:30 18 96 Room Air 12/27/16 07:00 98.5 70 16 113/65 (81) 96 Room Air 98.5 12/27/16 05:14 18 96 Room Air 12/27/16 03:05 18 96 Room Air 12/27/16 02:26 98.6 71 18 136/81 (99) 96 Room Air 98.6 12/27/16 01:16 18 97 Room Air 12/26/16 23:03 98.6 77 18 121/63 (82) 97 Room Air 98.6 12/26/16 22:24 18 Room Air 12/26/16 20:06 18 92 Room Air 12/26/16 20:00 Room Air 12/26/16 19:00 98.4 78 18 135/74 (94) 96 Room Air 98.4 12/26/16 18:23 Room Air 12/26/16 16:43 Room Air 12/26/16 16:13 Room Air 12/26/16 15:00 98.2 78 16 127/66 (86) 92 Room Air 98.2 12/26/16 14:14 Room Air 12/26/16 12:09 Room Air 12/26/16 11:00 97.9 76 22 137/66 (89) 96 97.9 I & O Intake and Output 12/27/16 07:00 Intake Total 580 ml Output Total 2550 ml Balance -1970 ml Intake Oral 0 ml Other 580 ml Output Urine Total 2550 ml # Voids 1 PHYSICAL EXAM Physical Exam lungs clear heart RRR abd less tender less distended still pain with palpation lower abd but no guarding +BS ext no edema ASSESSMENT/PLAN Assessment/Plan 1. acute Sigmoid colon diverticulitis. continue antibiotics 2. chronic neck pain due o spinal stenosis will try lidoderm/heat pad/ mucsle relaxant already getting narcotics for pain control 3. 3 millimeter right renal midpole nonobstructing calculus. 4. Small pulmonary nodules at the lung bases will monitor repeat CT 1 year 5. Fibroid uterus. 6. 1.5 centimeter nonspecific right adrenal nodule. agree with GI and surgery assessment, for repeat CT today if not worse will start liquid diet , continue ABx and pain control Problems: COMMENT Lab Laboratory Tests Test 12/27/16 05:30 White Blood Count 7.7 x10^3/uL (4.0-11.0) Red Blood Count 4.17 x10^6/uL (3.50-5.40) Hemoglobin 13.2 g/dL (12.0-15.5) Hematocrit 38.3 % (36.0-47.0) Mean Corpuscular Volume 92 fL (79-100) Mean Corpuscular Hemoglobin 32 pg (25-35) Mean Corpuscular Hemoglobin Concent 35 g/dL (31-37) Red Cell Distribution Width 12.7 % (11.5-14.5) Platelet Count 251 x10^3/uL (140-400) Erythrocyte Sedimentation Rate 25 (0-25) Sodium Level 138 mmol/L (136-145) Potassium Level 3.5 mmol/L (3.5-5.1) Chloride Level 103 mmol/L (98-107) Carbon Dioxide Level 26 mmol/L (21-32) Anion Gap 9 (6-14) Blood Urea Nitrogen 6 mg/dL (7-20) Creatinine 0.6 mg/dL (0.6-1.0) Estimated GFR (Cockcroft-Gault) 105.0 BUN/Creatinine Ratio 10 (6-20) Glucose Level 107 mg/dL (70-99) Calcium Level 8.8 mg/dL (8.5-10.1) Total Bilirubin 0.4 mg/dL (0.2-1.0) Aspartate Amino Transf (AST/SGOT) 16 U/L (15-37) Alanine Aminotransferase (ALT/SGPT) 18 U/L (14-59) Alkaline Phosphatase 75 U/L (46-116) Total Protein 7.1 g/dL (6.4-8.2) Albumin 3.2 g/dL (3.4-5.0) Albumin/Globulin Ratio 0.8 (1.0-1.7) Amylase Level 37 U/L (25-115) Lipase 70 U/L (73-393) AUREA NELSON MD December 27, 2016 09:27
--- NOTE | 2016-12-27 09:43 | CONS ---
DATE OF CONSULTATION: 12/26/2016 REFERRING PHYSICIANS: Dr. Drew Ho, Dr. Jame Horne, Dr. Pradeep Brown, Dr. Bala Carreno, and Ms. Lizette Gage. Thank you for consult. CHIEF COMPLAINT: Diffuse abdominal pain. DIAGNOSIS: Diverticulitis. HISTORY OF PRESENT ILLNESS: This is a 51-year-old female who reports not feeling well for about the past month. She has reported poor p.o. intake and she enjoys eating, reported difficulty with bowel function with intermittent problems of constipation and loose stool, and diffuse abdominal pain. This worsened over the past few days and she subsequently presented to the Emergency Room for evaluation. She has been hospitalist for a few days now without significant reduction in her pain. She reports otherwise doing reasonably well with no obvious nausea or vomiting. She is seen in her hospital room. She appears to be comfortable, but does become teary eye when discussing her medical issues. ALLERGIES: She has no known drug allergies. MEDICATIONS: Include hydrocodone, meloxicam, and gabapentin. PAST MEDICAL HISTORY: Osteoarthritis, cervical spinal stenosis, ocular histoplasmosis, fibromyalgia, depression. She had a history of tubal requiring salpingo-oophorectomy on one side, although she is unsure as to which side this was. SOCIAL HISTORY: Positive for half pack per day. She is encouraged on smoking cessation. Reports couple of units of alcohol once a week. History of cocaine use in the past. FAMILY HISTORY: Noncontributory. REVIEW OF SYSTEMS: All systems reviewed and negative except for HPI. PHYSICAL EXAMINATION: GENERAL: Well-developed, somewhat overweight female, appearing older than her stated age. VITAL SIGNS: She is afebrile. Vital signs within normal limits. HEENT: Normocephalic, atraumatic. Pupils equal. Anicteric sclerae. Oropharynx clear. No mucosal lesions. NECK: Supple. Trachea is midline. Bilateral chest excursion, no chest wall tenderness to palpation. ABDOMEN: Soft, nondistended, diffusely tenderness to palpation. No masses, no hernias palpable. EXTREMITIES: No clubbing, cyanosis or edema. LABORATORY DATA: White blood cell count is 9.2, which is down from 13.9 on presentation. Electrolytes are essentially unremarkable. Urinalysis is unremarkable. A CT scan of her abdomen and pelvis on 12/24/2016, demonstrates sigmoid colon diverticulitis, no abscess, the appendix was normal, small kidney stone, small pulmonary nodule, fibroid uterus and a small right adrenal nodule. IMPRESSION AND RECOMMENDATIONS: A 51-year-old female with diverticulitis. She appears to be improving by vital signs and laboratory data; however, she continues to have significant abdominal pain. As such, we will repeat her CT scan tomorrow to evaluate for possible abscess formation. In addition, we would like to have the pain service evaluate her and suspect her pain exacerbation secondary to exposure to narcotics previously. I will follow along for possible intervention. Thank you for allowing participation in the care of this pleasant patient. XAVI LARIOS MD DR: KENNEDY/stella JOB#: [id number] / [id number] LIZETTE Manzanares BRIAN MD MOUSSA, HALLA MD THOMPSON, MICHAEL MD
--- NOTE | 2016-12-27 10:12 | RAD ---
Indication: Diverticulitis. Axial imaging through the abdomen and pelvis was performed after the administration of intravenous contrast. Comparison is made with prior CT from 12/24/2016. There is subsegmental atelectasis in the left lung base. The liver and gallbladder are unremarkable. The pancreas and spleen are unremarkable. A right adrenal low density is stable. Left adrenal gland is unremarkable. Tiny calculus right kidney is stable. Aorta is nonaneurysmal. No ascites is identified. The small and large bowel loops are normal caliber. There continues to be wall thickening and perisigmoidal inflammatory changes consistent with acute diverticulitis. No fluid collection or abscess is identified. There is no bowel obstruction. The uterus is stable. The bladder is unremarkable. Impression: No significant change in the appearance of the CT abdomen pelvis when compared with CT 3 days earlier. There continue to be findings of acute sigmoid diverticulitis. No abscess formation or bowel obstruction is identified. PQRS Compliance Statement: One or more of the following individualized dose reduction techniques were utilized for this examination: 1. Automated exposure control 2. Adjustment of the mA and/or kV according to patient size 3. Use of iterative reconstruction technique
[2016-12-27] MEDS: CYCLOBENZAPRINE 10 MG TABLET. PO PRN ×2 (11:08→19:38)
[2016-12-27] MEDS: LIDOCAINE (700MG/PATCH) PATCH. TD SCH (11:09)
--- NOTE | 2016-12-27 12:09 | PDOC ---
SURGICAL PROGRESS NOTE Subjective Pt reported feeling better, but much more pain after CT Vital Signs Vital Signs Date Time Temp Pulse Resp B/P (MAP) Pulse Ox O2 Delivery O2 Flow Rate FiO2 12/27/16 11:00 21 92 Room Air 12/27/16 10:54 98.7 72 128/71 (90) 98.7 I&O Intake and Output 12/27/16 07:00 Intake Total 580 ml Output Total 2550 ml Balance -1970 ml Intake Oral 0 ml Other 580 ml Output Urine Total 2550 ml # Voids 1 General: Alert, Oriented X3, moderate distress Abdomen: Soft, Other (diffuse TTP) Labs Laboratory Tests Test 12/27/16 05:30 White Blood Count 7.7 x10^3/uL (4.0-11.0) Red Blood Count 4.17 x10^6/uL (3.50-5.40) Hemoglobin 13.2 g/dL (12.0-15.5) Hematocrit 38.3 % (36.0-47.0) Mean Corpuscular Volume 92 fL (79-100) Mean Corpuscular Hemoglobin 32 pg (25-35) Mean Corpuscular Hemoglobin Concent 35 g/dL (31-37) Red Cell Distribution Width 12.7 % (11.5-14.5) Platelet Count 251 x10^3/uL (140-400) Erythrocyte Sedimentation Rate 25 (0-25) Sodium Level 138 mmol/L (136-145) Potassium Level 3.5 mmol/L (3.5-5.1) Chloride Level 103 mmol/L (98-107) Carbon Dioxide Level 26 mmol/L (21-32) Anion Gap 9 (6-14) Blood Urea Nitrogen 6 mg/dL (7-20) Creatinine 0.6 mg/dL (0.6-1.0) Estimated GFR (Cockcroft-Gault) 105.0 BUN/Creatinine Ratio 10 (6-20) Glucose Level 107 mg/dL (70-99) Calcium Level 8.8 mg/dL (8.5-10.1) Total Bilirubin 0.4 mg/dL (0.2-1.0) Aspartate Amino Transf (AST/SGOT) 16 U/L (15-37) Alanine Aminotransferase (ALT/SGPT) 18 U/L (14-59) Alkaline Phosphatase 75 U/L (46-116) Total Protein 7.1 g/dL (6.4-8.2) Albumin 3.2 g/dL (3.4-5.0) Albumin/Globulin Ratio 0.8 (1.0-1.7) Amylase Level 37 U/L (25-115) Lipase 70 U/L (73-393) Laboratory Tests Test 12/27/16 05:30 White Blood Count 7.7 x10^3/uL (4.0-11.0) Red Blood Count 4.17 x10^6/uL (3.50-5.40) Hemoglobin 13.2 g/dL (12.0-15.5) Hematocrit 38.3 % (36.0-47.0) Mean Corpuscular Volume 92 fL (79-100) Mean Corpuscular Hemoglobin 32 pg (25-35) Mean Corpuscular Hemoglobin Concent 35 g/dL (31-37) Red Cell Distribution Width 12.7 % (11.5-14.5) Platelet Count 251 x10^3/uL (140-400) Erythrocyte Sedimentation Rate 25 (0-25) Sodium Level 138 mmol/L (136-145) Potassium Level 3.5 mmol/L (3.5-5.1) Chloride Level 103 mmol/L (98-107) Carbon Dioxide Level 26 mmol/L (21-32) Anion Gap 9 (6-14) Blood Urea Nitrogen 6 mg/dL (7-20) Creatinine 0.6 mg/dL (0.6-1.0) Estimated GFR (Cockcroft-Gault) 105.0 BUN/Creatinine Ratio 10 (6-20) Glucose Level 107 mg/dL (70-99) Calcium Level 8.8 mg/dL (8.5-10.1) Total Bilirubin 0.4 mg/dL (0.2-1.0) Aspartate Amino Transf (AST/SGOT) 16 U/L (15-37) Alanine Aminotransferase (ALT/SGPT) 18 U/L (14-59) Alkaline Phosphatase 75 U/L (46-116) Total Protein 7.1 g/dL (6.4-8.2) Albumin 3.2 g/dL (3.4-5.0) Albumin/Globulin Ratio 0.8 (1.0-1.7) Amylase Level 37 U/L (25-115) Lipase 70 U/L (73-393) Problem List Problems Medical Problems: (1) Abdominal pain Status: Acute (2) Acute diverticulitis Status: Acute Assessment/Plan diverticulitis CT stable recommend continued pain control should improve with abx and supportive care suspect operative intervention would make pain control very difficult Problems: XAVI LARIOS MD December 27, 2016 12:09
--- NOTE | 2016-12-27 12:22 | PDOC ---
Subjective: Subjective: Feels a little better. Less pain although still present. Objective: Vital Signs: Vital Signs Date Time Temp Pulse Resp B/P (MAP) Pulse Ox O2 Delivery O2 Flow Rate FiO2 12/27/16 11:00 21 92 Room Air 12/27/16 10:54 98.7 72 128/71 (90) 98.7 Labs: Laboratory Tests Test 12/27/16 05:30 White Blood Count 7.7 x10^3/uL Red Blood Count 4.17 x10^6/uL Hemoglobin 13.2 g/dL Hematocrit 38.3 % Mean Corpuscular Volume 92 fL Mean Corpuscular Hemoglobin 32 pg Mean Corpuscular Hemoglobin Concent 35 g/dL Red Cell Distribution Width 12.7 % Platelet Count 251 x10^3/uL Erythrocyte Sedimentation Rate 25 Sodium Level 138 mmol/L Potassium Level 3.5 mmol/L Chloride Level 103 mmol/L Carbon Dioxide Level 26 mmol/L Anion Gap 9 Blood Urea Nitrogen 6 mg/dL Creatinine 0.6 mg/dL Estimated GFR (Cockcroft-Gault) 105.0 BUN/Creatinine Ratio 10 Glucose Level 107 mg/dL Calcium Level 8.8 mg/dL Total Bilirubin 0.4 mg/dL Aspartate Amino Transf (AST/SGOT) 16 U/L Alanine Aminotransferase (ALT/SGPT) 18 U/L Alkaline Phosphatase 75 U/L Total Protein 7.1 g/dL Albumin 3.2 g/dL Albumin/Globulin Ratio 0.8 Amylase Level 37 U/L Lipase 70 U/L Imaging: CT A/P w/ oral and IV contrast Impression: No significant change in the appearance of the CT abdomen pelvis when compared with CT 3 days earlier. There continue to be findings of acute sigmoid diverticulitis. No abscess formation or bowel obstruction is identified. PE: GEN: NAD LUNGS: CTAB HEART: RRR ABD: BS+, less LLQ pain, more so in RLQ today but better NEURO/PSYCH: A & O 3 A/P: Sigmoid diverticulitis -pain improved today -interval CT as above, stable -on IV Flagyl and Cipro -no previous colonoscopy -no surg plans -- Other per Dr. Horne. FACUNDO SCHNEIDER December 27, 2016 12:22
[2016-12-27] MEDS: CIPROFLOXACIN 400MG PREMIX 200 ML IV SCH ×2 (13:45→22:52)
[2016-12-28] MEDS: CYCLOBENZAPRINE 10 MG TABLET. PO PRN ×3 (01:49→20:24)
[2016-12-28] MEDS: HYDROmorphone 2 MG/ML VIAL IV PRN ×8 (01:50→22:45)
[2016-12-28 03:00] VITALS: BP 100/55
[2016-12-28] MEDS: POTASSIUM CL 20MEQ D5-0.9%NACL 1,000 ML IV SCH ×3 (05:53→17:14)
[2016-12-28 07:00] VITALS: BP 110/53
[2016-12-28 07:15] LABS: HEMATOCRIT 37.9 % (36.0-47.0); HEMOGLOBIN 12.8 g/dL (12.0-15.5); RED BLOOD COUNT 4.03 x10^6/uL (3.50-5.40); WHITE BLOOD COUNT 7.1 x10^3/uL (4.0-11.0)
[2016-12-28 07:31] LABS: CALCIUM 8.6 mg/dL (8.5-10.1); CREATININE 0.5 mg/dL (0.6-1.0); GFR 129.6; POTASSIUM 3.9 mmol/L (3.5-5.1)
[2016-12-28] MEDS: CIPROFLOXACIN 400MG PREMIX 200 ML IV SCH ×2 (07:59→20:18)
[2016-12-28] MEDS: LIDOCAINE (700MG/PATCH) PATCH. TD SCH (08:00)
--- NOTE | 2016-12-28 10:00 | PDOC ---
SUBJECTIVE Subjective feels better today OBJECTIVE Vital Signs Vital Signs Date Time Temp Pulse Resp B/P (MAP) Pulse Ox O2 Delivery O2 Flow Rate FiO2 12/28/16 09:35 95 Room Air 12/28/16 09:05 95 Room Air 12/28/16 07:00 97.5 72 18 110/53 (72) 95 Room Air 97.5 12/28/16 06:31 15 12/28/16 05:53 16 96 Room Air 12/28/16 03:00 97.9 64 18 100/55 (70) 96 Room Air 97.9 12/28/16 01:50 17 96 Room Air 12/27/16 23:40 18 96 Room Air 12/27/16 23:00 98.5 71 18 107/57 (74) 96 Room Air 98.5 12/27/16 21:40 16 93 Room Air 12/27/16 19:38 16 93 Room Air 12/27/16 19:00 94 19 142/84 (103) 98 Room Air 12/27/16 16:05 20 93 Room Air 12/27/16 14:44 98.2 70 16 135/81 (99) 99 Room Air 98.2 12/27/16 10:54 98.7 72 18 128/71 (90) 97 Room Air 98.7 I & O Intake and Output 12/28/16 07:00 Intake Total 360 ml Balance 360 ml Intake Oral 360 ml # Voids 6 PHYSICAL EXAM Physical Exam lungs clar heart RRR abd less tender today + BS neck pain also better ASSESSMENT/PLAN Assessment/Plan 1. acute Sigmoid colon diverticulitis. continue antibiotics 2. chronic neck pain due o spinal stenosis improved with lidoderm/heat pad/ mucsle relaxant 3. 3 millimeter right renal midpole nonobstructing calculus. 4. Small pulmonary nodules at the lung bases will monitor repeat CT 1 year 5. Fibroid uterus. 6. 1.5 centimeter nonspecific right adrenal nodule. CT the same continue plans tolerated liquid will advance as tolerated, may be able to discharge Saturday Dr. Middleton will cover this Week End Problems: COMMENT Lab Laboratory Tests Test 12/28/16 06:10 White Blood Count 7.1 x10^3/uL (4.0-11.0) Red Blood Count 4.03 x10^6/uL (3.50-5.40) Hemoglobin 12.8 g/dL (12.0-15.5) Hematocrit 37.9 % (36.0-47.0) Mean Corpuscular Volume 94 fL (79-100) Mean Corpuscular Hemoglobin 32 pg (25-35) Mean Corpuscular Hemoglobin Concent 34 g/dL (31-37) Red Cell Distribution Width 13.0 % (11.5-14.5) Platelet Count 229 x10^3/uL (140-400) Sodium Level 141 mmol/L (136-145) Potassium Level 3.9 mmol/L (3.5-5.1) Chloride Level 105 mmol/L (98-107) Carbon Dioxide Level 26 mmol/L (21-32) Anion Gap 10 (6-14) Blood Urea Nitrogen 4 mg/dL (7-20) Creatinine 0.5 mg/dL (0.6-1.0) Estimated GFR (Cockcroft-Gault) 129.6 Glucose Level 105 mg/dL (70-99) Calcium Level 8.6 mg/dL (8.5-10.1) AUREA NELSON MD December 28, 2016 10:00
[2016-12-28 11:00] VITALS: BP 117/66
--- NOTE | 2016-12-28 11:45 | PDOC ---
Subjective: Subjective: Feels better, less pain. Tolerating clears. Had a BM today. Family asks about diverticulosis/itis, colonoscopies, etc. Objective: Vital Signs: Vital Signs Date Time Temp Pulse Resp B/P (MAP) Pulse Ox O2 Delivery O2 Flow Rate FiO2 12/28/16 11:08 95 Room Air 12/28/16 11:00 97.6 82 18 117/66 (83) 97.6 Labs: Laboratory Tests Test 12/28/16 06:10 White Blood Count 7.1 x10^3/uL Red Blood Count 4.03 x10^6/uL Hemoglobin 12.8 g/dL Hematocrit 37.9 % Mean Corpuscular Volume 94 fL Mean Corpuscular Hemoglobin 32 pg Mean Corpuscular Hemoglobin Concent 34 g/dL Red Cell Distribution Width 13.0 % Platelet Count 229 x10^3/uL Sodium Level 141 mmol/L Potassium Level 3.9 mmol/L Chloride Level 105 mmol/L Carbon Dioxide Level 26 mmol/L Anion Gap 10 Blood Urea Nitrogen 4 mg/dL Creatinine 0.5 mg/dL Estimated GFR (Cockcroft-Gault) 129.6 Glucose Level 105 mg/dL Calcium Level 8.6 mg/dL PE: GEN: NAD LUNGS: clear anteriorly HEART: RRR ABD: non-tender, soft NEURO/PSYCH: A & O 3 A/P: Sigmoid diverticulitis -pain improving, tolerating clears -on IV Flagyl and Cipro -no previous colonoscopy -- Continue same for now, will discuss advancing diet w/ Dr. Horne. Education provided re: diverticulosis/itis, colonoscopy recs, etc. FACUNDO SCHNEIDER December 28, 2016 11:45
--- NOTE | 2016-12-28 13:19 | PDOC ---
GABY LEDESMA TOPOGRAPHICAL ENGINEER 12/28/16 1319: SURGICAL PROGRESS NOTE Subjective feeling better, pain much improved no nausea loose stool Vital Signs Vital Signs Date Time Temp Pulse Resp B/P (MAP) Pulse Ox O2 Delivery O2 Flow Rate FiO2 12/28/16 11:40 95 Room Air 12/28/16 11:00 97.6 82 18 117/66 (83) 97.6 I&O Intake and Output 12/28/16 07:00 Intake Total 360 ml Balance 360 ml Intake Oral 360 ml # Voids 6 General: Alert, Oriented X3, Cooperative, No acute distress Abdomen: Normal bowel sounds, Soft, No tenderness Labs Laboratory Tests Test 12/27/16 05:30 12/28/16 06:10 White Blood Count 7.7 x10^3/uL (4.0-11.0) 7.1 x10^3/uL (4.0-11.0) Red Blood Count 4.17 x10^6/uL (3.50-5.40) 4.03 x10^6/uL (3.50-5.40) Hemoglobin 13.2 g/dL (12.0-15.5) 12.8 g/dL (12.0-15.5) Hematocrit 38.3 % (36.0-47.0) 37.9 % (36.0-47.0) Mean Corpuscular Volume 92 fL (79-100) 94 fL (79-100) Mean Corpuscular Hemoglobin 32 pg (25-35) 32 pg (25-35) Mean Corpuscular Hemoglobin Concent 35 g/dL (31-37) 34 g/dL (31-37) Red Cell Distribution Width 12.7 % (11.5-14.5) 13.0 % (11.5-14.5) Platelet Count 251 x10^3/uL (140-400) 229 x10^3/uL (140-400) Erythrocyte Sedimentation Rate 25 (0-25) Sodium Level 138 mmol/L (136-145) 141 mmol/L (136-145) Potassium Level 3.5 mmol/L (3.5-5.1) 3.9 mmol/L (3.5-5.1) Chloride Level 103 mmol/L (98-107) 105 mmol/L (98-107) Carbon Dioxide Level 26 mmol/L (21-32) 26 mmol/L (21-32) Anion Gap 9 (6-14) 10 (6-14) Blood Urea Nitrogen 6 mg/dL (7-20) 4 mg/dL (7-20) Creatinine 0.6 mg/dL (0.6-1.0) 0.5 mg/dL (0.6-1.0) Estimated GFR (Cockcroft-Gault) 105.0 129.6 BUN/Creatinine Ratio 10 (6-20) Glucose Level 107 mg/dL (70-99) 105 mg/dL (70-99) Calcium Level 8.8 mg/dL (8.5-10.1) 8.6 mg/dL (8.5-10.1) Total Bilirubin 0.4 mg/dL (0.2-1.0) Aspartate Amino Transf (AST/SGOT) 16 U/L (15-37) Alanine Aminotransferase (ALT/SGPT) 18 U/L (14-59) Alkaline Phosphatase 75 U/L (46-116) Total Protein 7.1 g/dL (6.4-8.2) Albumin 3.2 g/dL (3.4-5.0) Albumin/Globulin Ratio 0.8 (1.0-1.7) Amylase Level 37 U/L (25-115) Lipase 70 U/L (73-393) Laboratory Tests Test 12/28/16 06:10 White Blood Count 7.1 x10^3/uL (4.0-11.0) Red Blood Count 4.03 x10^6/uL (3.50-5.40) Hemoglobin 12.8 g/dL (12.0-15.5) Hematocrit 37.9 % (36.0-47.0) Mean Corpuscular Volume 94 fL (79-100) Mean Corpuscular Hemoglobin 32 pg (25-35) Mean Corpuscular Hemoglobin Concent 34 g/dL (31-37) Red Cell Distribution Width 13.0 % (11.5-14.5) Platelet Count 229 x10^3/uL (140-400) Sodium Level 141 mmol/L (136-145) Potassium Level 3.9 mmol/L (3.5-5.1) Chloride Level 105 mmol/L (98-107) Carbon Dioxide Level 26 mmol/L (21-32) Anion Gap 10 (6-14) Blood Urea Nitrogen 4 mg/dL (7-20) Creatinine 0.5 mg/dL (0.6-1.0) Estimated GFR (Cockcroft-Gault) 129.6 Glucose Level 105 mg/dL (70-99) Calcium Level 8.6 mg/dL (8.5-10.1) Problem List Problems Medical Problems: (1) Abdominal pain Status: Acute (2) Acute diverticulitis Status: Acute Assessment/Plan diverticulitis continue abx, slow advancement of diet as pt improves Problems: XAVI LARIOS MD 12/28/16 1722: SURGICAL PROGRESS NOTE Assessment/Plan Pt seen and examined. Agree with Ms. Ledesma's note Pt feels better abd soft, mild TTP cont abx and ADAT Problems: GABY LEDESMA APRN December 28, 2016 13:19 XAVI LARIOS MD December 28, 2016 17:22
[2016-12-28 14:57] VITALS: BP 122/70
[2016-12-28 19:55] VITALS: BP 116/50
[2016-12-28 23:10] VITALS: BP 133/52
[2016-12-29] MEDS: POTASSIUM CL 20MEQ D5-0.9%NACL 1,000 ML IV SCH ×3 (01:20→19:15)
[2016-12-29] MEDS: HYDROmorphone 2 MG/ML VIAL IV PRN ×8 (01:21→22:25)
[2016-12-29 03:00] VITALS: BP 99/44
[2016-12-29 07:00] VITALS: BP 129/51
[2016-12-29] MEDS: CIPROFLOXACIN 400MG PREMIX 200 ML IV SCH ×2 (07:57→20:14)
[2016-12-29] MEDS: LIDOCAINE (700MG/PATCH) PATCH. TD SCH (07:58)
[2016-12-29 10:50] VITALS: BP 106/45
--- NOTE | 2016-12-29 10:52 | PDOC ---
GENERAL General: vss and afebrile. awake and alert and feeling better. minimal llq tenderness on exam. chest clear and heart regular. continue antibiotics. help surgery and GI appreciated. Problems: VITAL SIGNS Vital Signs: Vital Signs Date Time Temp Pulse Resp B/P (MAP) Pulse Ox O2 Delivery O2 Flow Rate FiO2 12/29/16 10:42 18 95 Room Air 12/29/16 07:00 98.1 65 129/51 (77) 98.1 I & O I & O Intake and Output 12/29/16 07:00 Intake Total 2195 ml Output Total 500 ml Balance 1695 ml Intake Oral 320 ml IV Total 1875 ml Output Urine Total 500 ml # Voids 3 ALLERGIES Allergies: Allergies Coded Allergies Type Severity Reaction Last Updated Verified No Known Drug Allergies 06/19/16 No MEDS Medications: Current Medications Medications (Trade) Dose Ordered Sig/Maryellen Start Time Stop Time Status Last Admin Dose Admin Artificial Tears (Artificial Tears) 1 drop PRN Q15MIN PRN 12/24/16 23:00 12/24/16 23:19 1 DROP Ciprofloxacin Lactate 200 ml @ 200 mls/hr Q12H 12/24/16 20:00 12/29/16 07:57 200 MLS/HR Cyclobenzaprine HCl (Flexeril) 10 mg PRN Q6HRS PRN 12/27/16 09:30 12/28/16 20:24 10 MG Diphenhydramine HCl (Benadryl) 25 mg PRN Q4HRS PRN 12/26/16 20:00 12/26/16 21:08 25 MG Hydrocortisone (Cortaid) 1 alecia TID PRN PRN 12/25/16 14:15 12/25/16 19:48 1 ALECIA Hydromorphone HCl (Dilaudid) 1 mg PRN Q2HRS PRN 12/26/16 19:15 12/29/16 10:42 1 MG Info (Do NOT chart on this entry -- for MONITORING) 1 each PRN DAILY PRN 12/27/16 06:30 12/29/16 06:29 DC Iohexol (Omnipaque 240 Mg/ml) 30 ml 1X ONCE 12/27/16 07:00 12/27/16 07:01 DC 12/27/16 09:38 30 ML Iohexol (Omnipaque 300 Mg/ml) 75 ml 1X ONCE 12/27/16 07:00 12/27/16 07:01 DC 12/27/16 09:38 75 ML Iohexol (Omnipaque 350 Mg/ml) 100 ml 1X ONCE 12/24/16 16:45 12/24/16 16:46 DC Lidocaine (Lidoderm) 1 patch DAILY 12/27/16 10:00 12/29/16 07:58 1 PATCH Metronidazole 100 ml @ 100 mls/hr Q12HR 12/25/16 09:00 12/29/16 09:05 100 MLS/HR Morphine Sulfate 4 mg PRN Q2HR PRN 12/24/16 19:00 12/25/16 10:19 DC 12/25/16 09:55 4 MG Ondansetron HCl (Zofran) 4 mg PRN Q8HRS PRN 12/24/16 19:00 12/25/16 18:59 DC Potassium Chloride/Dextrose/ Sod Cl 1,000 ml @ 125 mls/hr Q8H 12/26/16 19:15 12/29/16 01:20 125 MLS/HR Sodium Chloride 1,000 ml @ 100 mls/hr Q10H 12/24/16 18:55 12/25/16 18:54 DC 12/25/16 09:55 100 MLS/HR DANNY BARRERA MD December 29, 2016 10:52
[2016-12-29 14:53] VITALS: BP 97/50
[2016-12-29 19:59] VITALS: BP 123/69
--- NOTE | 2016-12-29 21:48 | PDOC ---
SURGICAL PROGRESS NOTE Subjective Pt reports feeling better, Vital Signs Vital Signs Date Time Temp Pulse Resp B/P (MAP) Pulse Ox O2 Delivery O2 Flow Rate FiO2 12/29/16 20:00 Room Air 12/29/16 19:59 98.2 73 18 123/69 (87) 99 98.2 I&O Intake and Output 12/29/16 07:00 Intake Total 2195 ml Output Total 500 ml Balance 1695 ml Intake Oral 320 ml IV Total 1875 ml Output Urine Total 500 ml # Voids 3 General: Alert, Oriented X3, Cooperative, No acute distress Abdomen: Soft, No tenderness Labs Laboratory Tests Test 12/28/16 06:10 White Blood Count 7.1 x10^3/uL (4.0-11.0) Red Blood Count 4.03 x10^6/uL (3.50-5.40) Hemoglobin 12.8 g/dL (12.0-15.5) Hematocrit 37.9 % (36.0-47.0) Mean Corpuscular Volume 94 fL (79-100) Mean Corpuscular Hemoglobin 32 pg (25-35) Mean Corpuscular Hemoglobin Concent 34 g/dL (31-37) Red Cell Distribution Width 13.0 % (11.5-14.5) Platelet Count 229 x10^3/uL (140-400) Sodium Level 141 mmol/L (136-145) Potassium Level 3.9 mmol/L (3.5-5.1) Chloride Level 105 mmol/L (98-107) Carbon Dioxide Level 26 mmol/L (21-32) Anion Gap 10 (6-14) Blood Urea Nitrogen 4 mg/dL (7-20) Creatinine 0.5 mg/dL (0.6-1.0) Estimated GFR (Cockcroft-Gault) 129.6 Glucose Level 105 mg/dL (70-99) Calcium Level 8.6 mg/dL (8.5-10.1) Problem List Problems Medical Problems: (1) Abdominal pain Status: Acute (2) Acute diverticulitis Status: Acute Assessment/Plan diverticulitis cont supportive care Problems: XAVI LARIOS MD December 29, 2016 21:48
[2016-12-29] MEDS: CYCLOBENZAPRINE 10 MG TABLET. PO PRN (22:24)
[2016-12-29 23:32] VITALS: BP 115/67
[2016-12-30] MEDS: POTASSIUM CL 20MEQ D5-0.9%NACL 1,000 ML IV SCH ×2 (01:24→12:11)
[2016-12-30] MEDS: HYDROmorphone 2 MG/ML VIAL IV PRN ×2 (03:29→07:46)
[2016-12-30 03:33] VITALS: BP 117/66
[2016-12-30 07:00] VITALS: BP 121/58
[2016-12-30] MEDS: CIPROFLOXACIN 400MG PREMIX 200 ML IV SCH (07:46)
[2016-12-30] MEDS: LIDOCAINE (700MG/PATCH) PATCH. TD SCH (09:06)
--- NOTE | 2016-12-30 09:16 | PDOC ---
GABY LEDESMA APRN 12/30/16 0916: SURGICAL PROGRESS NOTE Subjective tolerating diet pain is much improved, sore with movement, more on right side Vital Signs Vital Signs Date Time Temp Pulse Resp B/P (MAP) Pulse Ox O2 Delivery O2 Flow Rate FiO2 12/30/16 08:16 18 99 Room Air 12/30/16 07:00 97.7 65 121/58 (79) 97.7 I&O Intake and Output 12/30/16 07:00 Intake Total 4100 ml Output Total 1700 ml Balance 2400 ml Intake Oral 1000 ml IV Total 3100 ml Output Urine Total 1700 ml # Voids 4 General: Alert, Oriented X3, Cooperative, No acute distress Abdomen: Soft, No tenderness Problem List Problems Medical Problems: (1) Abdominal pain Status: Acute (2) Acute diverticulitis Status: Acute Assessment/Plan normal WBC, benign abdominal exam soft diet continue abx Problems: XAVI LARIOS MD 12/30/16 1342: SURGICAL PROGRESS NOTE Assessment/Plan Pt seen and examined. Agree with Clarence's note Pt feels much better abd soft, NTTP OK to d/c in AM Problems: GABY LEDESMA APRN December 30, 2016 09:16 XAVI LARIOS MD December 30, 2016 13:42
--- NOTE | 2016-12-30 09:39 | PDOC ---
GENERAL General: vss and afebrile. awake and alert. minimal llq tenderness. chest clear and heart regular. will switch to po meds today and advance diet with probable dc in am. Pain still quite a bit when has to get up to go to bathroom. Problems: VITAL SIGNS Vital Signs: Vital Signs Date Time Temp Pulse Resp B/P (MAP) Pulse Ox O2 Delivery O2 Flow Rate FiO2 12/30/16 08:16 18 99 Room Air 12/30/16 07:00 97.7 65 121/58 (79) 97.7 I & O I & O Intake and Output 12/30/16 07:00 Intake Total 4100 ml Output Total 1700 ml Balance 2400 ml Intake Oral 1000 ml IV Total 3100 ml Output Urine Total 1700 ml # Voids 4 ALLERGIES Allergies: Allergies Coded Allergies Type Severity Reaction Last Updated Verified No Known Drug Allergies 06/19/16 No MEDS Medications: Current Medications Medications (Trade) Dose Ordered Sig/Maryellen Start Time Stop Time Status Last Admin Dose Admin Artificial Tears (Artificial Tears) 1 drop PRN Q15MIN PRN 12/24/16 23:00 12/24/16 23:19 1 DROP Ciprofloxacin Lactate 200 ml @ 200 mls/hr Q12H 12/24/16 20:00 12/30/16 07:46 200 MLS/HR Cyclobenzaprine HCl (Flexeril) 10 mg PRN Q6HRS PRN 12/27/16 09:30 12/29/16 22:24 10 MG Diphenhydramine HCl (Benadryl) 25 mg PRN Q4HRS PRN 12/26/16 20:00 12/26/16 21:08 25 MG Hydrocortisone (Cortaid) 1 alecia TID PRN PRN 12/25/16 14:15 12/25/16 19:48 1 ALECIA Hydromorphone HCl (Dilaudid) 1 mg PRN Q2HRS PRN 12/26/16 19:15 12/30/16 07:46 1 MG Info (Do NOT chart on this entry -- for MONITORING) 1 each PRN DAILY PRN 12/27/16 06:30 12/29/16 06:29 DC Iohexol (Omnipaque 240 Mg/ml) 30 ml 1X ONCE 12/27/16 07:00 12/27/16 07:01 DC 12/27/16 09:38 30 ML Iohexol (Omnipaque 300 Mg/ml) 75 ml 1X ONCE 12/27/16 07:00 12/27/16 07:01 DC 12/27/16 09:38 75 ML Iohexol (Omnipaque 350 Mg/ml) 100 ml 1X ONCE 12/24/16 16:45 12/24/16 16:46 DC Lidocaine (Lidoderm) 1 patch DAILY 12/27/16 10:00 12/30/16 09:06 1 PATCH Metronidazole 100 ml @ 100 mls/hr Q12HR 12/25/16 09:00 12/30/16 09:05 100 MLS/HR Morphine Sulfate 4 mg PRN Q2HR PRN 12/24/16 19:00 12/25/16 10:19 DC 12/25/16 09:55 4 MG Ondansetron HCl (Zofran) 4 mg PRN Q8HRS PRN 12/24/16 19:00 12/25/16 18:59 DC Potassium Chloride/Dextrose/ Sod Cl 1,000 ml @ 125 mls/hr Q8H 12/26/16 19:15 12/30/16 01:24 125 MLS/HR Sodium Chloride 1,000 ml @ 100 mls/hr Q10H 12/24/16 18:55 12/25/16 18:54 DC 12/25/16 09:55 100 MLS/HR DANNY BARRERA MD December 30, 2016 09:39
[2016-12-30] MEDS ORDERED: HYDROcodone/APAP 5/325MG 1 TAB TABLET PO PRN ×2 (09:45)
[2016-12-30] MEDS: PSYLLIUM HUSK (SUGAR FREE) 1 PKT PACKET PO SCH (10:00)
[2016-12-30 11:00] VITALS: BP 123/69
[2016-12-30 14:57] VITALS: BP 124/70
[2016-12-30] MEDS ORDERED: traMADol 50 MG TABLET PO PRN (16:45)
[2016-12-30] MEDS: CYCLOBENZAPRINE 10 MG TABLET. PO PRN ×2 (16:56→23:38)
[2016-12-30 19:00] VITALS: BP 132/85
[2016-12-30] MEDS: CIPROFLOXACIN HCL 250 MG TABLET. PO SCH (20:01)
[2016-12-30] MEDS: metroNIDAZOLE 500 MG TABLET PO SCH (20:01)
[2016-12-30 23:09] VITALS: BP 146/85
[2016-12-31 03:00] VITALS: BP 115/70
[2016-12-31] MEDS: CYCLOBENZAPRINE 10 MG TABLET. PO PRN (05:52)
[2016-12-31 07:00] VITALS: BP 115/71
[2016-12-31] MEDS: PSYLLIUM HUSK (SUGAR FREE) 1 PKT PACKET PO SCH (07:47)
[2016-12-31] MEDS: CIPROFLOXACIN HCL 250 MG TABLET. PO SCH (07:47)
[2016-12-31] MEDS: metroNIDAZOLE 500 MG TABLET PO SCH (07:47)
[2016-12-31] MEDS: LIDOCAINE (700MG/PATCH) PATCH. TD SCH (07:47)
[2016-12-31 11:03] VITALS: BP 129/76
--- NOTE | 2016-12-31 11:17 | PDOC ---
Subjective: Subjective: Wants to leave, feeling anxious, wants to know what's taking so long. No GI complaints. Objective: Vital Signs: Vital Signs Date Time Temp Pulse Resp B/P (MAP) Pulse Ox O2 Delivery O2 Flow Rate FiO2 12/31/16 11:03 97.8 84 16 129/76 (93) 97 Room Air 97.8 PE: GEN: NAD, sitting on edge of bed NEURO/PSYCH: A & O 3, anxious A/P: Sigmoid diverticulitis -pain resolved, eating and stooling -on PO atbx -no previous colonoscopy -- DC per primary. Follow-up for colonoscopy w/ Dr. Horne. FACUNDO SCHNEIDER December 31, 2016 11:17
[2016-12-31] MEDS ORDERED: METR500T PO (11:49)
[2016-12-31] MEDS ORDERED: CIPR250T30 PO (11:49)
[2016-12-31] MEDS ORDERED: PSYL3.4P PO (11:49)
--- NOTE | 2016-12-31 12:07 | PDOC ---
SUBJECTIVE Subjective feels better, eating and had BM, pain better OBJECTIVE Vital Signs Vital Signs Date Time Temp Pulse Resp B/P (MAP) Pulse Ox O2 Delivery O2 Flow Rate FiO2 12/31/16 11:03 97.8 84 16 129/76 (93) 97 Room Air 97.8 12/31/16 08:00 Room Air 12/31/16 07:00 98.3 78 16 115/71 (86) 98 Room Air 98.3 12/31/16 03:00 98.1 77 20 115/70 (85) 95 Room Air 98.1 12/30/16 23:09 98.0 72 20 146/85 (105) 97 Room Air 98.0 12/30/16 20:03 Room Air 12/30/16 19:00 98.2 84 20 132/85 (101) 97 Room Air 98.2 12/30/16 16:56 18 97 Room Air 12/30/16 14:57 97.7 75 20 124/70 (88) 97 Room Air 97.7 I & O Intake and Output 12/31/16 07:00 Intake Total 1120 ml Balance 1120 ml Intake Oral 1120 ml # Voids 8 # Bowel Movements 1 PHYSICAL EXAM Physical Exam much better no tenderness in abdomen ASSESSMENT/PLAN Assessment/Plan home today on p.o ABx f/u out pt Problems: AUREA NELSON MD December 31, 2016 12:07
--- NOTE | 2016-12-31 12:11 | PDOC3 ---
Discharge Summary* Date of Admission: December 24, 2016 Date of Discharge: December 31, 2016 Admitting Diagnosis Problems Medical Problems: (1) Abdominal pain Status: Acute (2) Acute diverticulitis Status: Acute Final Diagnosis 1. acute Sigmoid colon diverticulitis. continue antibiotics 2. chronic neck pain due o spinal stenosis improved 3. 3 millimeter right renal midpole nonobstructing calculus. 4. Small pulmonary nodules at the lung bases will monitor repeat CT 1 year in 2017 5. Fibroid uterus. 6. 1.5 centimeter nonspecific right adrenal nodule. Medical Problems: (1) Abdominal pain Status: Acute (2) Acute diverticulitis Status: Acute CONSULTS GI Dr. Horne Surgery Dr. Buchanan Procedures CT abd and pelvis x2 Brief Hospital Course Ms. Hooker is a 51 old [sex] who presented with [ ] Disposition/Orders: D/C to Home, D/C to Home w/ HH CONDITION AT DISCHARGE: Improved Diet: Cardiac Scheduled Ciprofloxacin Hcl (Cipro), 500 MG PO BID Diphenhydramine Hcl (Benadryl), 1 CAP PO QHS, (Reported) Gabapentin (Gabapentin), 300 MG PO TID, (Reported) Meloxicam (Meloxicam), 1 TAB PO DAILY, (Reported) Metronidazole (Flagyl), 500 MG PO Q12HR Multivitamin (Multi-Day Vitamins), 1 TAB PO DAILY, (Reported) Psyllium Husk/Aspartame (Metamucil Fiber Singles Packet), 1 PKT PO DAILY Scheduled PRN Acetaminophen (Tylenol), 325 MG PO PRN QHS PRN for INSOMNIA, (Reported) Hydrocodone Bit/Acetaminophen (Hydrocodone-Apap 7.5-325 ), 1 TAB PO PRN Q6HRS PRN for PAIN, (Reported) [tylenol pm], for PAIN, (Reported) Discontinued Medications Pregabalin (Lyrica), 1 CAP PO BID, (Reported) FOLLOW UP APPOINTMENT: office 7-10 days need colono out pt , recheck CT chest 1 year or so Time Spent Total time spent with patient [] minutes for coordination of care, counseling, and education. AUREA NELSON MD December 31, 2016 12:11
--- NOTE | 2016-12-31 12:27 | PDOC ---
SURGICAL PROGRESS NOTE Subjective tolerating diet getting ready to go home feels well Vital Signs Vital Signs Date Time Temp Pulse Resp B/P (MAP) Pulse Ox O2 Delivery O2 Flow Rate FiO2 12/31/16 11:03 97.8 84 16 129/76 (93) 97 Room Air 97.8 I&O Intake and Output 12/31/16 06:59 Intake Total 1120 ml Balance 1120 ml Intake Oral 1120 ml # Voids 8 # Bowel Movements 1 General: Alert, Oriented X3, Cooperative, No acute distress Abdomen: Soft, No tenderness Problem List Problems Medical Problems: (1) Abdominal pain Status: Acute (2) Acute diverticulitis Status: Acute Assessment/Plan dc home FU with GI as instructed no surgical needs at this time Problems: GABY LEDESMA APRN December 31, 2016 12:27
== END 2016-12-31 12:12 | disposition home or self-care (01) | DRG 392 ==
LOC: ER 16:07 → 5 SOUTH 18:56
PROVIDERS: ADMIT Internal Medicine; ATTEND Internal Medicine
DX: K57.32 Diverticulitis of large intestine without perforation or abscess without bleeding (principal); D25.9 Leiomyoma of uterus, unspecified; F17.210 Nicotine dependence, cigarettes, uncomplicated; G89.29 Other chronic pain; K59.00 Constipation, unspecified; M48.02 Spinal stenosis, cervical region; M79.7 Fibromyalgia; Z83.3 Family history of diabetes mellitus; Z86.73 Personal history of transient ischemic attack (TIA), and cerebral infarction without residual deficits; F32.9 Major depressive disorder, single episode, unspecified; M19.90 Unspecified osteoarthritis, unspecified site
CPT/HCPCS: 36415; 74177; 80048; 80053; 81001; 82150; 83690; 84484; 85027; 85651; 93005; 96374; J0744; J1170; J1200; J2270; J3490; J7030; Q9966; Q9967; 99285-25